=== PATIENT | female | born 1950 | race Caucasian/White ===

== ENCOUNTER 2025-10-25 12:34 | Outpatient (CLI) | payer OTHER, SELFPAY ==
--- NOTE | ~2025-10-25 | NM_ITS ---
EXAMINATION: BECCA singletary renal scan DATE: 10/25/2025 14:46 INDICATION: Atrophic kidney TECHNIQUE: 8 mCi Tc-99m MAG3 was administered IV. 40 mg furosemide was administered IV immediately afterward. The patient was scanned in the supine position. A posterior abdominal radionuclide angiogram was obtained. A subsequent time course of static images of the kidneys, ureters, and bladder was obtained. COMPARISON: None FINDINGS: The posterior abdominal radionuclide angiogram and sequential static images show normal position, and morphology of the kidneys. The left kidney significantly smaller than the right kidney. Peak renal parenchymal uptake was 9.5 min in left kidney and 9.5 min in right kidney (normal peak 3-5 minutes). The relative early renal uptake was 15% on the left and 85% on the right (<40% is abnormal). No abnormalities of the ureters or bladder are seen. There is a small focus of prominent persistent activity on the delayed images at the upper pole of the left kidney which appears greater than the activity in the renal pelvis which suggests either obstruction and caliectasis of an upper pole calyx possibly a calyceal diverticulum. T1/2 for clearance of activity from the left kidney and proximal collecting system was 19 minutes. T1/2 for clearance of activity from the right kidney and proximal collecting system was 19 minutes. Notes on interpretation: T1/2 <10 minutes is normal, 10-15 minutes is low grade obstruction of questionable clinical significance, 15-20 minutes is partial obstruction that is likely clinically significant, >20 minutes is high grade obstruction. Note that false positives may be seen with supine positioning, dehydration, severely dilated nonobstructed kidney, atonic collecting system, poor renal function, and chronic furosemide use. IMPRESSION: 1. 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 2. There is delayed clearance from both kidneys with T half for clearance of 19 minutes which would be consistent with likely clinically significant partial obstruction. Given the significant decreased relative function of the left kidney the degree of delay may be exaggerated by global poor renal function. 3. Small region of prominent persistent activity at the upper pole of the right kidney which suggests either caliectasis or potentially a calyceal diverticulum. Reviewed, dictated and finalized at location A. Y [employer]EVEL [employer]OUNT MANAGER IMPRESSION: 1. 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 2. There is delayed clearance from both kidneys with T half for clearance of 1 9 minutes which would be consistent with likely clinically significant partial obstruction. Given the significant decreased relative function of the left kidn ey the degree of delay may be exaggerated by global poor renal function. 3. Small region of prominent persistent activity at the upper pole of the right kidney which suggests either caliectasis or potentially a calyceal diverticulu m.
--- OUTSIDE RECORDS SUMMARY | 2025-10-25 12:42 | XMS_ITS | Encounter Summary ---
Author Organization [facility] Healthcare Address [address] [place] [address] Care Team Providers Care Hazardous Waste Remover Name Role Phone Deepak Clarke Primary Care Provider Georgette Cason DO Unavailable [phone] Aaron Mckay MD Unavailable [phone] Amandeep Fermin MD Unavailable [phone] Encounter Details Date Type Department Care Team (Late st Contact Info) Description 10/14/2025 Orders Only [facility] Health Information Management [address] [place] [address] Deepak Clarke PA [address] [place] [address] [address] [place] [address] Social History Tobacco Use Types Packs/Day Years Used Date Smoking Tobacco: Former Cigarettes 0.5 57.3 1 966 - 08/07/2025 Smokeless Tobacco: Never Alcohol Use Standard Drinks/Week Comments Not Currently 0 (1 standard drink = 0.6 oz pur e alcohol) PHQ-2 Answer Date Recorded PHQ-2 Total Score (If total score is 3 or more points, staff should administer the PHQ-9) 2 09/11/2025 PHQ-9 Answer Date Recorded PHQ-9 Total Score 6 09/11/2025 AUDIT-C Answer Date Recorded Q1: How often do you have a drink containing alcohol? Never 10/01/2025 Q2: How many drinks containi ng alcohol do you have on a typical day when you are drinking? Patient does not drink Q3: How often do you have si x or more drinks on one occasion? Never 10/01/2025 Personal Safety Answer Date Recorded Have you ever been in or are you currently in a harmful physical or emotional relationship or is someone making you feel afraid or unsafe? Denies 10/01/2025 Comments No Sex and Gender Information Value Date Recorded Sex Assigned at Not on file Legal Sex Female 11:52 PM HEALTH EVALUATOR Gender Identity Not on file Sexual Orientation Not on file documented as of this encounter Plan of Treatment Upcoming Encounters Date Type Department Care Team (Late st Contact Info) Description 12/03/2025 7:30 AM HEALTH EVALUATOR Hospital Encounter [facility] Operating Room [address] [place] [address] [place] [address] [address] [place] [address] Infrarenal abdominal aortic aneurysm (AAA) without rupture 12/03/2025 7:30 AM HEALTH EVALUATOR Anesthesia Event [facility] Operating [address] [place] [address] Jena Graham NP [address] [facility] [id number] [place] [address] 12/03/2025 7:30 AM HEALTH EVALUATOR - 12/03/2025 12:10 PM HEALTH EVALUATOR Surgery [facility] Operating Room [address] [place] [id number] [place] [address] [address] [place] [address] ENDOVASCULAR REPAIR - AORTIC documented as of this encounter Goals Goal Patient Goal Type Associated Problems Recent Progress Patient-Stated? Author Autogenera sujit Goal Care Plan Autogenerated Problem No Juan Ramon Duarte RN documented as of this encounter Procedures Procedure Name Priority Date/Time Associated Diagnosis Comments SCAN - LABS 10/14/2025 documented in this encounter Results * SCAN - LABS (10/14/2025) Deepak BUCK Final R esult documented in this encounter Visit Diagnoses Not on filedocumented in this encounter Additional Health Concerns Active Problems Noted Date Diagnosed Date Autogenerated Problem 10/15/2025 documented as of this encounter Care Teams Hazardous Waste Remover Relationship Specialty Start Date End Date Deepak Clarke PA [address] [facility] [address] [place] [address] PCP - General Internal Medicine 06/16/22 Georgette Cason DO [address] [facility] [address] [place] [address] Consulting Physician Endocrinology Diabetes & Metabolism 03/15/25 [place] [address] [place] [address] Consulting Physician Urology 09/12/25 Amandeep Fermin MD 2 [facility] [address] [place] [address] Consulting Physician Urology 10/24/25 [facility] 08/09/24 documented as of this encounter
--- OUTSIDE RECORDS SUMMARY | 2025-10-25 12:42 | XMS_ITS | Encounter Summary ---
Author Organization [facility] Address [address] [place] [address] Phone Care Team Providers Care Auto Body Builder Apprentice Name Role Phone Kendrick Rich MD Primary Care Provi johan Deepak Clarke Primary Care Provider Georgette Cason DO Unavailable [phone] Aaron Mckay MD Unavailable [phone] Amandeep Fermin MD Unavailable [phone] Encounter Details Date Type Department Care Team (Late st Contact Info) Description 11/17/2017 Orders Only [facility] ProviderKerry MD [address] [place] [address] Social History Tobacco Use Types Packs/Day Years Used Date Smoking Tobacco: Never Smokeless Tobacco: Never Alcohol Use Standard Drinks/Week Comments No 0 (1 standard drink = 0.6 oz pur e alcohol) Comments Unknown Sex and Gender Information Value Date Recorded Sex Assigned at Not on file Legal Sex Female 11:52 PM PLANT WRAPPER Gender Identity Not on file Sexual Orientation Not on file documented as of this encounter Plan of Treatment Upcoming Encounters Date Type Department Care Team (Late st Contact Info) Description 12/03/2025 7:30 AM PLANT WRAPPER Hospital Encounter [facility] Operating Room [address] [place] [address] [place] [address] [address] [facility] [address] [place] [address] Infrarenal abdominal aortic aneurysm (AAA) without rupture 12/03/2025 7:30 AM PLANT WRAPPER Anesthesia Event [facility] Operating Room [address] [place] [address] Jena Graham NP [address] [facility] [id number] [place] [address] 12/03/2025 7:30 AM PLANT WRAPPER - 12/03/2025 12:10 PM PLANT WRAPPER Surgery [facility] Operating Room [address] [place] [address] [place] [address] [address] [facility] [address], [place] [address] ENDOVASCULAR REPAIR - AORTIC documented as of this encounter Procedures Procedure Name Priority Date/Time Associated Diagnosis Comments DISCHARGE LABORATORY CUMULATIVE REPORT 11/17/2017 12:00 AM PLANT WRAPPER documented in this encounter Results * DISCHARGE LABORATORY CUMULATIVE REPORT (11/17/2017 12:00 AM PLANT WRAPPER) Narrative 11/17/2017 12:00 AM PLANT WRAPPER Ordered by an unspecified provider. us Historical Provider LAB BLOOD ORDERABLES Nhung l Result documented in this encounter Visit Diagnoses Not on filedocumented in this encounter Care Teams Auto Body Builder Apprentice Relationship Specialty Start Date End Date Kendrick Rich MD PCP - General 02/04/17 06/15/22 Deepak Clarke PA 2 [facility] [address] [place] [address] PCP - General Internal Medicine 06/16/22 Georgette Cason DO [address] [facility] [address] [place] [address] Consulting Physician Endocrinology Diabetes & Metabolism 03/15/25 [place] [address] [place] [address] Consulting Physician Urology 09/12/25 Amandeep Fermin MD 2 [facility] [address] [place] [address] Consulting Physician Urology 10/24/25 [facility] 08/09/24 documented as of this encounter
--- OUTSIDE RECORDS SUMMARY | 2025-10-25 12:42 | XMS_ITS | Encounter Summary ---
Author Organization [facility] Healthcare Address [address] [place] [address] Care Team Providers Care Workers Compensation Claims Examiner Name Role Phone Deepak Clarke Primary Care Provider Georgette Cason DO Unavailable [phone] Aaron Mckay MD Unavailable [phone] Amandeep Fermin MD Unavailable [phone] Encounter Details Date Type Department Care Team (Late st Contact Info) Description 09/11/2025 Results Follow-Up [facility] Primary Care at [address] [place] [address] Deeapk Clarke PA [address] [place] [address] [address] [place], [place] [id number] CTA Abdomen Pelvis Social History Tobacco Use Types Packs/Day Years [...] you have a drink containing alcohol? Never 09/11/2025 Q2: How many drinks containi ng alcohol do you have on a typical day when you are drinking? Patient does not drink Q3: How often do you have si x or more drinks on one occasion? Never 09/11/2025 Comments No Sex and Gender Information Value Date Recorded Sex Assigned at Not on file Legal Sex Female 11:52 PM CATTLE TRADER Gender Identity Not on file Sexual Orientation Not on file documented as of this encounter Plan of Treatment Upcoming Encounters Date Type Department Care Team (Late st Contact Info) Description 12/03/2025 7:30 AM CATTLE TRADER Hospital Encounter [facility] Operating Room [address] [place] [address] [place] [address] [address] [facility] [address], [place] [address] Infrarenal abdominal aortic aneurysm (AAA) without rupture 12/03/2025 7:30 AM CATTLE TRADER Anesthesia Event [facility] Operating [address] [place] [phone] Jena Graham, BELL RINGER [address] [facility] [phone] [place] [address] 12/03/2025 7:30 AM CATTLE TRADER - 12/03/2025 12:10 PM CATTLE TRADER Surgery [facility] Operating Room [address] [place] [address] [place] [address] [address] [place] [address] ENDOVASCULAR REPAIR - AORTIC documented as of this encounter Goals Goal Patient Goal Type Associated Problems Recent Progress Patient-Stated? Author Autogenera sujit Goal Care Plan Autogenerated Problem No Juan Ramon Duarte RN documented as of this encounter Visit Diagnoses Not on filedocumented in this encounter Additional Health Concerns Active Problems Noted Date Diagnosed Date Autogenerated Problem 10/15/2025 documented as of this encounter Care Teams Workers Compensation Claims Examiner Relationship Specialty Start Date End Date Deepak Clarke PA [address] [facility] [address] [place] [address] PCP - General Internal Medicine 06/16/22 Georgette Cason DO [address] [facility] [address] [place] [address] Consulting Physician Endocrinology Diabetes & Metabolism 03/15/25 [place] [address] [place] [address] Consulting Physician Urology 09/12/25 Amandeep Fermin MD 2 [facility] [address] [place] [address] Consulting Physician Urology 10/24/25 [facility] 08/09/24 documented as of this encounter
--- OUTSIDE RECORDS SUMMARY | 2025-10-25 12:42 | XMS_ITS | Clinical Summary ---
Author Organization [facility] Address [address] [place] [address] Care Team Providers Care Second Mate Name Role Phone Deepak Clarke Primary Care Provider Georgette Cason DO Unavailable [phone] Aaron Mckay MD Unavailable Amandeep Fermin MD Unavailable [phone] Allergies Active Allergy Reactions Criticality Noted Date Comments Sulfamethoxazole-Trimeth oprim Diarrhea,Dizziness,Headache,N ausea only,Fatigue Low 09/19/2025 Bupropion Hallucinations Medium 11/09/2024 Medications aspirin 81 mg enteric coated tabletIndicati ons:prevention of thrombosis Take 1 tablet (81 mg total) by mouth every evening Active hypromellose (SYSTANE GEL OPHT)Indicatio ns:dry eye/allergies Administer 1 drop into affected eye(s) daily as needed (eye irritation) Active cholecalcifero l (VITAMIN D-3) 5,000 unit tablet TAKE 1 TABLET BY MOUTH EVERY DAY 90 tablet 3 024 Active Additional Information Patient taking differently:5,000 Units oralDaily (early AM), Indications: Prevention of Vitamin D Deficiency, Informant: Self, Reported on 10/01/2025 cyanocobalamin (Vitamin B-12) 500 mcg tabletIndicati ons:Prevention of Vitamin B12 Deficiency Take 1 tablet (500 mcg total) by mouth every other day Active allopurinoL (ZYLOPRIM) 100 mg tablet TAKE 2 TABLETS BY MOUTH TWICE A DAY 360 tablet 3 Active Additional Information Patient taking differently:200 mg oral 2 times daily,Indications: Recurrent Calcium Renal Calculi, Informant: Self, Reported on 10/01/2025 venlafaxine XR (EFFEXOR-XR) 150 mg 24 hr capsule TAKE 1 CAPSULE BY MOUTH EVERY DAY 90 capsule 3 Active Additional Information Patient taking differently:150 mg oralEvery evening, + 75 mg tab = 225 mg total dose, Indications: Anxiety with Depression, Informant: Self, Reported on 10/01/2025 spironolactone (ALDACTONE) 25 mg tablet Take 1 tablet (25 mg total) by mouth daily 90 tablet 3 2025 Active Additional Information Patient taking differently:25 mg oralDaily (early AM), Indications: Ascites, hypertension, Informant: Self, Reported on 10/01/2025 fluticasone-um eclidin-vilant er (Trelegy Ellipta) 200-62.5-25 mcg inhaler Inhale 1 puff daily 1 each Active Additional Information Patient taking differently:1 puff inhalationDaily (early AM), Indications: Maintenance Therapy for Asthma, Informant: Self, Reported on 10/01/2025 mirabegron ER (MYRBETRIQ) 50 mg tablet extended release 24 hr Take 1 tablet (50 mg total) by mouth nightly 90 tablet 3 Active Additional Information Patient taking differently:50 mg oral Nightly,Indications: Bladder Hyperactivity, Informant: Self, Reported on 10/01/2025 atorvastatin (LIPITOR) 20 mg tablet TAKE 1 TABLET BY MOUTH EVERY DAY 90 tablet 3 025 Active Additional Information Patient taking differently:20 mg oralDaily (early AM), Indications: hyperlipidemia, Informant: Self, Reported on 10/01/2025 venlafaxine XR (EFFEXOR-XR) 75 mg 24 hr capsuleIndicat ions:Recurrent major depressive disorder, in partial remission Take 1 capsule (75 mg total) by mouth daily Take in combination with the 150 to equal 225mg. 90 capsule 4 025 2025 Active Additional Information Patient taking differently:75 mg oralEvery evening, Take in combination with the 150 to equal 225mg.,Indications: Anxiety with Depression, Informant: Self, Reported on 10/01/2025 celecoxib (CeleBREX) 200 mg capsule Take 1 capsule (200 mg total) by mouth daily 30 capsule 3 Active Additional Information Patient taking differently:200 mg oralEvery morning, Indications: Pain, Informant: Self, Reported on 10/01/2025 lisinopriL (PRINIVIL,ZEST RIL) 30 mg tablet TAKE 1 TABLET BY MOUTH EVERY DAY 90 tablet 4 Active Additional Information Patient taking differently:30 mg oralEvery evening, Indications: hypertension, Informant: Self, Reported on 10/01/2025 predniSONE (DELTASONE) 1 mg tablet TAKE 4 TABLETS BY MOUTH DAILY 120 tablet 3 Active Additional Information Patient taking differently:4 mg oralDaily (early AM), Indications: polymyalgia, Informant: Self, Reported on 10/01/2025 nystatin powder Apply topically 4 (four) times a day As needed for fungal rash 60 g 2025 Active Additional Information Patient taking differently: 1 Applicationtopical 4 times daily, As needed for fungal rash,Indications: cutaneous candidiasis, Informant: Self, Reported on 10/01/2025 estradioL (ESTRACE) 0.01 % (0.1 mg/gram) vaginal creamIndicatio ns:Atrophic Vaginitis associated with Menopause,Post menopausal Urethral Atrophy Insert 2 g into the vagina 2 (two) times a week Active albuterol HFA (PROVENTIL HFA,VENTOLIN HFA,PROAIR HFA) 90 mcg/actuation inhaler Inhale 2 puffs every 4 (four) hours as needed for wheezing or shortness of breath (cough) 1 each Active Additional Information Patient taking differently:2 puff inhalation Every 4 hours PRN, wheezing, shortness of breath, cough,Indications: Acute Asthma Attack, Chronic Obstructive Pulmonary Disease, Informant: Self, Reported on 10/01/2025 nitrofurantoin monohydrate (MACROBID) 100 mg capsuleIndicat ions:Prophylax is, Medical,Urinar y Tract/Genitour inary Infection Take 1 capsule (100 mg total) by mouth 2 (two) times a day Active magnesium glycinate 100 mg tabletIndicati ons:supplement Take 1 tablet by mouth every evening Activ e mometasone (NASONEX) 50 mcg/actuation nasal sprayIndicatio ns:Nasal sinus congestion Administer 2 sprays into each nostril 2 (two) times a day for 14 days 17 g 2024 Discontin ued(Thera py completed ) nitrofurantoin (MACRODANTIN) 100 mg capsule Take 1 capsule (100 mg total) by mouth nightly 30 capsule 3 025 2024 Discontin ued(Dupli juani order) cefdinir (OMNICEF) 300 mg capsuleIndicat ions:Urinary Tract/Genitour inary Infection Take 1 capsule (300 mg total) by mouth 2 (two) times a day for 7 days 14 capsule 025 2024 Hospital, Clinic, or Other Facility Administered Medication Ordered Dose Route Frequency Start Date End Date Status Tc-99m sestamibi unit dose injection 10.18 millicurieIndicatio ns:Diagnostic Radiography 10.18 millicurie IV Once in imaging 10/08/2025 10/08/2025 En ded regadenoson (LEXISCAN) 0.4 mg/5 mL injection 0.4 mgIndications:Myoca rdial Perfusion Imaging Adjunct 0.4 mg IV Once 10/08/2025 10/08/2025 Ended Tc-99m sestamibi unit dose injection 38.71 millicurieIndicatio ns:Diagnostic Radiography 38.71 millicurie IV Once in imaging 10/08/2025 10/08/2025 En ded Active Problems Problem Noted Date Diagnosed Date Urinary tract infection 10/08/2025 Assessment & Plan (10/08/2025 6:34 AM REGULATORY AFFAIRS PORTFOLIO LEADER): - Recent UTI treated with bactrim then macrobid - pre op UA COPD without exacerbation 10/08/2025 Assessment & Plan (10/08/2025 6:35 AM REGULATORY AFFAIRS PORTFOLIO LEADER): - previous smoker, quit 08/07 per chart review - continue home inhalers - IS Age-related osteoporosis wit hoervin current pathological fracture 08/30/2025 Abdominal aortic aneurysm (AAA) without rupture 08/30/2025 Assessment & Plan (10/08/2025 6:30 AM REGULATORY AFFAIRS PORTFOLIO LEADER): 10/09: s/p EVAR - OU, Q2 hr NV exam - Bedrest - Advance diet as tolerated - Monitor incisions/puncture for bleeding/hematoma - Continue ASA - normotension BP goal - OOB POD #1 Recurrent major depressive disorder, in full rem ission 03/15/2025 Overview (03/15/2025): Controlled on Effexor Overactive bladder 03/15/2025 Overview (03/15/2025): Not adequately treated with Myrbetriq 25 and will try 50 mg. Assessment & Plan (06/05/2025 11:38 AM CDT): Chronic problem, not at goal Continue Myrbetriq Consider urology referral in the future Irritable bowel syndrome with diarrhea Emphysema of lung 08/05/2022 Collagenous colitis 09/11/2021 Assessment & Plan (02/03/2022 2:50 PM CDT): Responded well to treatment with budesonide. Tapered off the medication and has remained asymptomatic. Denies diarrhea or abdominal pain. She was advised to discontinue Lomotil, dicyclomine and budesonide. Advised to call me if symptoms reoccur. Assessment & Plan (10/26/2021 9:03 PM REG[employer]ATORY AFFAIRS PORTFOLIO LEADER): Doing much better. She was started on budesonide 9 mg daily. She started to feel much better within the 1st wwek. She was instructed to taper of budesonide. Specifically she was asked to take 6 mg daily for 2 weeks and then 3 mg daily for 2 weeks. Advised to call me if diarrhea worsens again. At that point I will treat her with cholestyramine and Imodium. Follow-up office visit in 3 months. Assessment & Plan (09/11/2021 11:24 AM CDT): Newly diagnosed. Associated with 2-3 loose bowel movements daily. When responded well to Lomotil. She has taking Aleve for arthritis for many years. She will be started on budesonide 9 mg daily. Advised to take Lomotil only p.r.n.. Printed patient educational material was given to the patient. She was advised to resume taking her antidepressant. Chronic diarrhea 08/24/2021 Overview (08/24/2021): Added automatically from request for surgery [id number] Assessment & Plan (02/03/2022 2:51 PM CDT): Evaluation revealed features of collagenous colitis. Successfully treated with budesonide. Will observe at this time. Assessment & Plan (09/11/2021 11:24 AM CDT): Likely due to microscopic colitis. Recent colonoscopy report was reviewed. Patient is now started on therapy with budesonide. Will continue to monitor her response to therapy. Return visit in 6 weeks. Chronic pain of both knees 03/23/2021 Assessment & Plan (03/23/2021 11:43 AM CDT): Discussed 1/5 not happy with knee replacement that at her wt many surg will ont do sursg and feel to high risk for a bad out come. Recognize thaty wt off a struggle . So for now keepkng knee Primary osteoarthritis of both knees 03/04/2021 Assessment & Plan (03/04/2021 4:38 PM CDT): Using cane and hobbling but with bmi 43 not a ggod candidate for knee replacement. But referral in upcoming months acacia if cont with wt off Benign paroxysmal positional vertigo due to bilateral vestibular disorder 02/20/2020 Assessment & Plan (02/20/2020 11:21 AM CDT): Episodic and suggest ading zyrtec and if cont then dig up the inner ear vertigo exercises to try salt limits Seasonal allergies 02/20/2020 Assessment & Plan (02/20/2020 11:22 AM CDT): Seasonal all add zyrtec and see if hel[pful for now using 2 forms of benadryl and not aware of After asking her to spell out meds As long as recog then can use Trigger ring finger of left hand 02/20/2020 Assessment & Plan (02/20/2020 11:23 AM CDT): Ring finger sticks and palm hurts on occasion when Moves. Discussed and Option of inj If cont to be issue. Plantar fasciitis 12/19/2019 Assessment & Plan (12/19/2019 4:31 PM [employer]ATORY AFFAIRS PORTFOLIO LEADER): Discussed and Type of self therapy to help critical to stretch repeatedly 1-2 mins but 6+ times a day. Slow transit constipation 12/19/2019 Assessment & Plan (03/04/2021 4:36 PM CDT): Denies ant pre diarrhea severe constipation os impaction not art of differential for now Assessment & Plan (12/19/2019 4:34 PM REG[employer]ATORY AFFAIRS PORTFOLIO LEADER): miralax go to 4 daose until moves then adjsut as needed to controll Atherosclerosis of abdominal aorta 07/26/2018 Assessment & Plan (06/16/2022 1:56 PM CDT): Asa and tight risk Assessment & Plan (05/19/2021 10:12 AM CDT): Tight risk And cont mes as on Assessment & Plan (02/20/2020 11:10 AM CDT): Asa and tight risk cotnrnmoll Assessment & Plan (01/24/2019 9:20 AM CDT): Risk control Assessment & Plan (07/26/2018 12:06 PM CDT): Noted on scan and work to controll risk with ldl. Sugar ad bp. Daily asa 81 Tobacco abuse 07/26/2018 Assessment & Plan (09/11/2025 7:37 AM REGULATORY AFFAIRS PORTFOLIO LEADER): The patient was advised to quit smoking; the risks of continued tobacco use discussed. Assessment & Plan (07/18/2025 7:09 AM CDT): The patient was advised to quit smoking; the risks of continued tobacco use discussed. Assessment & Plan (03/15/2025 7:43 AM CDT): The patient was advised to quit smoking; the risks of continued tobacco use discussed. Assessment & Plan (02/07/2025 12:29 PM CDT): Continue cessation. Up-to-date on low-dose lung CT Assessment & Plan (01/10/2024 10:17 AM REGULATORY AFFAIRS PORTFOLIO LEADER): Continue cessation. Up-to-date on low-dose lung CT Assessment & Plan (03/18/2023 7:47 AM CDT): The patient was advised to quit smoking; the risks of continued tobacco use discussed. Assessment & Plan (11/04/2022 12:50 PM REGULATORY AFFAIRS PORTFOLIO LEADER): The patient was advised to quit smoking; the risks of continued tobacco use discussed. Assessment & Plan (08/04/2022 12:46 PM CDT): She was advised to quit smoking; the risks of continued tobacco use discussed. Assessment & Plan (05/19/2021 10:04 AM CDT): Wants to quit and try chantix as helped before but told has to make up mind to quit an dit will do It givenhx Assessment & Plan (05/08/2020 7:58 AM CDT): The patient was advised to quit smoking; the risks of continued tobacco use discussed. Assessment & Plan (05/16/2019 8:31 AM CDT): She was advised to quit smoking; the risks of continued tobacco use discussed. Counseled for approximately 6 minutes Assessment & Plan (09/14/2018 9:21 AM REGULATORY AFFAIRS PORTFOLIO LEADER): She was advised to quit smoking; the risks of continued tobacco use discussed. Assessment & Plan (07/26/2018 12:25 PM CDT): Still smokes and knows needs to quit. Other general medical examin ation for administrative purposes 07/26/2018 Assessment & Plan (05/19/2021 10:20 AM CDT): eee today , full code has poa and living will. Assessment & Plan (07/27/2018 5:53 PM CDT): Declines colon but aggrees to cologuard Primary localized osteoarthritis of right knee 0 11/24/2017 Assessment & Plan (06/16/2022 1:57 PM CDT): referal to maria isabel osei for inj. PE (physical exam), annual 06/23/2017 Assessment & Plan (06/16/2022 2:01 PM CDT): Well exam mod fall risk deprienos screen stable and mild abn and declines meds cog screen nl see's [place] in near future gi dr crockett consider shingles shot seroies covid updae with new shot.timothy consider updateing Assessment & Plan (05/19/2021 10:15 AM CDT): Mod fall risk , depressino screen neg and on meds. Cog screen nl colon and timothy up to date had flu . p shots and cocvid . Needs new shingles shot series. Assessment & Plan (07/26/2018 12:25 PM CDT): Needs ma and suggest. Needs colon eval and declines colonoscopy. Has had p shots and fllu this yyyr. Shingles was 4 yrs ago and discussed new one. Check withinasurance about coverageo on the tdap and should get. Repeat labs and bp check in 2months for lipids.depression screen nl. Fall risk low.admits juan pablo worry and d cif one. Discussed probiotics. Fiber to reduce risk. Interested in totoal body scan and I am not a valadez of any insurance covered benefit to get. Still smokes and needs to quit Morbid obesity with BMI of 45.0-49.9, adult 06/07 Assessment & Plan (11/09/2024 7:18 AM REG[employer]ATORY AFFAIRS PORTFOLIO LEADER): The patient was counseled on the importance of maintaining a healthy weight and the risks of obesity. Weight loss recommended. Assessment & Plan (08/09/2024 8:14 AM CDT): The patient was counseled on the importance of maintaining a healthy weight and the risks of obesity. Weight loss recommended. Assessment & Plan (06/20/2024 7:37 AM CDT): The patient was counseled on the importance of maintaining a healthy weight and the risks of obesity. Weight loss recommended. Assessment & Plan (01/10/2024 6:51 AM REGULATORY AFFAIRS PORTFOLIO LEADER): She was counseled on the importance of maintaining a healthy weight and the risks of obesity. Weight loss recommended. Assessment & Plan (03/18/2023 7:47 AM CDT): The patient was counseled on the importance of maintaining a healthy weight and the risks of obesity. Weight loss recommended. Assessment & Plan (11/04/2022 12:50 PM REGULATORY AFFAIRS PORTFOLIO LEADER): The patient was counseled on the importance of maintaining a healthy weight and the risks of obesity. Weight loss recommended. Assessment & Plan (08/04/2022 12:46 PM CDT): She was counseled on the importance of maintaining a healthy weight and the risks of obesity. Weight loss recommended. Assessment & Plan (06/16/2022 2:01 PM CDT): Needs to loseMorbid obesity is a bmi of 40 or more. Targeted weight loss with portion controll(calorie restriction) ,increased basal activity Levels along with adding an exercise program to lead to gradual weight loss,.Any program of change from weight watchers. To nutra system along with others work. Assessment & Plan (01/03/2018 8:43 AM REGULATORY AFFAIRS PORTFOLIO LEADER): She was counseled on the importance of maintaining a healthy weight and the risks of obesity. Weight loss recommended. Assessment & Plan (11/29/2017 9:15 AM REGULATORY AFFAIRS PORTFOLIO LEADER): Morbid obesity is a bmi of 40 or more. Targeted weight loss with portion controll(calorie restriction) ,increased basal activity Levels along with adding an exercise program to lead to gradual weight loss,.Any program of change from weight watchers. To nutra system along with others work. Assessment & Plan (06/23/2017 11:26 AM CDT): Morbid obesity is a bmi of 40 or more. Targeted weight loss with portion controll(calorie restriction) ,increased basal activity Levels along with adding an exercise program to lead to gradual weight loss,.Any program of change from weight watchers. To nutra system along with others work. At moderate risk for fall 06/23/2017 Assessment & Plan (06/16/2022 1:57 PM CDT): Mod risk rfall Assessment & Plan (05/19/2021 10:16 AM CDT): Mod fall risk Assessment & Plan (07/26/2018 12:10 PM CDT): Low risk for fall and cont to walk Assessment & Plan (06/23/2017 11:21 AM CDT): At Risk low but work to work at balance IGT (impaired glucose tolerance) 06/23/2017 Assessment & Plan (06/16/2022 1:56 PM CDT): a1c at 5.6 Assessment & Plan (02/10/2022 4:14 PM CDT): Check a1c on return Assessment & Plan (05/19/2021 10:11 AM CDT): a1c at 5.5 and nl Assessment & Plan (02/20/2020 11:15 AM CDT): Fasting 91 adbn check a1c onr eturn Assessment & Plan (09/20/2019 8:17 AM REGULAT[employer] AFFAIRS PORTFOL[employer] LEADER): a1c at 5.6 and check in 3-4 monoths Assessment & Plan (01/24/2019 9:11 AM CDT): a1c down to 5.6 and dropping ovber last yr. Will drop more with added wt off Assessment & Plan (07/26/2018 12:09 PM CDT): a1c at 5.7 and 5.6 nl. Assessment & Plan (03/29/2018 10:51 AM CDT): a1c droopped and with added Limits on food will drop Assessment & Plan (11/29/2017 9:16 AM REGULATORY AFFAIRS PORTFOLIO LEADER): a1c at 6.1 and 6.5 diabetes. Assessment & Plan (06/23/2017 11:22 AM CDT): a1c at 6.0 and 5.6 andlessnl.Igt is the reduction of tolerance to simple carbs and usually looked at as a pre diabetic state. For most losing weight. Controlling the intake of simple carbs is helpful in improving this. We follow the a1c of most patients to monitor this Benign hypertension 06/13/2015 Overview (02/09/2017): BENIGN HYPERTENSION Assessment & Plan (10/08/2025 6:32 AM REGULATORY AFFAIRS PORTFOLIO LEADER): - OU, VS q2 hrs and PRN - Normotension BP goal - continue home lisinopril and spirnolactone when able Assessment & Plan (09/11/2025 7:37 AM REGULATORY AFFAIRS PORTFOLIO LEADER): Recommend DASH diet, heart healthy lifestyle, exercise. Discussed the risks of hypertension. Assessment & Plan (07/18/2025 7:06 AM CDT): Recommend DASH diet, heart healthy lifestyle, exercise. Discussed the risks of hypertension. Assessment & Plan (03/15/2025 7:43 AM CDT): Recommend DASH diet, heart healthy lifestyle, exercise. Discussed the risks of hypertension. Assessment & Plan (02/07/2025 12:29 PM CDT): Recommend DASH diet, heart healthy lifestyle, exercise. Discussed the risks of hypertension. Assessment & Plan (11/09/2024 7:17 AM REGULATORY AFFAIRS PORTFOLIO LEADER): Recommend DASH diet, heart healthy lifestyle, exercise. Discussed the risks of hypertension. Assessment & Plan (08/09/2024 8:14 AM CDT): Recommend DASH diet, heart healthy lifestyle, exercise. Discussed the risks of hypertension. Assessment & Plan (06/20/2024 7:37 AM CDT): Recommend DASH diet, heart healthy lifestyle, exercise. Discussed the risks of hypertension. Assessment & Plan (01/10/2024 6:51 AM REGULATORY AFFAIRS PORTFOLIO LEADER): Recommend DASH diet, heart-healthy lifestyle, exercise. Discussed the risks of hypertension. Assessment & Plan (09/09/2023 10:03 AM CDT): Recommend DASH diet, heart healthy lifestyle, exercise. Discussed the risks of hypertension. Assessment & Plan (03/18/2023 7:47 AM CDT): Recommend DASH diet, heart healthy lifestyle, exercise. Discussed the risks of hypertension. Assessment & Plan (11/04/2022 12:51 PM REGULATORY AFFAIRS PORTFOLIO LEADER): Recommend DASH diet, heart healthy lifestyle, exercise. Discussed the risks of hypertension. Assessment & Plan (08/04/2022 12:45 PM CDT): Recommend DASH diet, heart-healthy lifestyle, exercise. Discussed the risks of hypertension. Assessment & Plan (06/16/2022 1:55 PM CDT): bp good and if wt Changes then needs to tract as jenny affect itHypertension, Medical treament revolves around weight control, salt management, and meds when necessary. long as weight loss is necessary and you are able to drop weight we can cont to monitor the blood pressure and not add meds. Once the weight is not changing then it becomes nesessary to add meds to be able to reach the goal bp. Assessment & Plan (02/10/2022 4:13 PM CDT): The bp good and k eep meds same Hypertension, Medical treament revolves around weight control, salt management, and meds when necessary. long as weight loss is necessary and you are able to drop weight we can cont to monitor the blood pressure and not add meds. Once the weight is not changing then it becomes nesessary to add meds to be able to reach the goal bp. Assessment & Plan (12/23/2021 10:08 AM REGULATORY AFFAIRS PORTFOLIO LEADER): The bp good but not liking the k pill so change to 20 lisinpril stopk 20 and start aldctone 25 and check labs and bp in 4-6 wksHypertension, Medical treament revolves around weight control, salt management, and meds when necessary. long as weight loss is necessary and you are able to drop weight we can cont to monitor the blood pressure and not add meds. Once the weight is not changing then it becomes nesessary to add meds to be able to reach the goal bp. Assessment & Plan (10/19/2021 8:50 AM REGULATORY AFFAIRS PORTFOLIO LEADER): Recommend DASH diet, heart-healthy lifestyle, exercise. Discussed the risks of hypertension. Assessment & Plan (08/17/2021 6:12 PM CDT): Recommend DASH diet, heart-healthy lifestyle, exercise. Discussed the risks of hypertension. Assessment & Plan (07/27/2021 12:03 PM CDT): bp dropped and will stop the catapress and recheck bp and see if not need more d Roped Hypertension, Medical treament revolves around weight control, salt management, and meds when necessary. long as weight loss is necessary and you are able to drop weight we can cont to monitor the blood pressure and not add meds. Once the weight is not changing then it becomes nesessary to add meds to be able to reach the goal bp. In 2-3 wks Or when drops 7-10 lbs cut the lisinopril in 11/08 and tell us on return if doing that Assessment & Plan (05/19/2021 10:09 AM CDT): The bp good and drops touch on standing but no complalnts but watch and drop meds if see's issuesHypertension, Medical treament revolves around weight control, salt management, and meds when necessary. long as weight loss is necessary and you are able to drop weight we can cont to monitor the blood pressure and not add meds. Once the weight is not changing then it becomes nesessary to add meds to be able to reach the goal bp. Assessment & Plan (03/23/2021 11:37 AM CDT): The bp good and no chagd in meds and diet would drop wt and Med needsHypertension, Medical treament revolves around weight control, salt management, and meds when necessary. long as weight loss is necessary and you are able to drop weight we can cont to monitor the blood pressure and not add meds. Once the weight is not changing then it becomes nesessary to add meds to be able to reach the goal bp. Assessment & Plan (03/04/2021 4:30 PM CDT): Wt looss and idaarhea not afectinig bp yet but leave meds as on and check bp wekly.Hypertension, Medical treament revolves around weight control, salt management, and meds when necessary. long as weight loss is necessary and you are able to drop weight we can cont to monitor the blood pressure and not add meds. Once the weight is not changing then it becomes nesessary to add meds to be able to reach the goal bp. Assessment & Plan (11/18/2020 3:22 PM [facility] AFFAIRS PORTFOLIO LEADER): bp Controlled and should stay good as long as not sign. Wt changseHypertension, Medical treament revolves around weight control, salt management, and meds when necessary. long as weight loss is necessary and you are able to drop weight we can cont to monitor the blood pressure and not add meds. Once the weight is not changing then it becomes nesessary to add meds to be able to reach the goal bp. Assessment & Plan (05/08/2020 7:58 AM CDT): Hypertension questions Assessment & Plan (02/20/2020 11:09 AM CDT): No bp to re[port stay on meds and cont meds as on and Report if an issue as if wt cont to drop as in past jenny see bp lowerHypertension, Medical treament revolves around weight control, salt management, and meds when necessary. long as weight loss is necessary and you are able to drop weight we can cont to monitor the blood pressure and not add meds. Once the weight is not changing then it becomes nesessary to add meds to be able to reach the goal bp. Assessment & Plan (12/19/2019 4:29 PM [facility]ATORY AFFAIRS PORTFOLIO LEADER): Post op bp good on meeds and no changes watch as jenny drop with wtHypertension, Medical treament revolves around weight control, salt management, and meds when necessary. long as weight loss is necessary and you are able to drop weight we can cont to monitor the blood pressure and not add meds. Once the weight is not changing then it becomes nesessary to add meds to be able to reach the goal bp. Assessment & Plan (09/20/2019 8:17 AM REGULATORY AFFAIRS PORTFOLIO LEADER): The bp good enough to drop/stop the hydralazine and short term check and see if can stop next pill might be hctz or drop to 12.5 and see e ffects on calciumHypertension, Medical treament revolves around weight control, salt management, and meds when necessary. long as weight loss is necessary and you are able to drop weight we can cont to monitor the blood pressure and not add meds. Once the weight is not changing then it becomes nesessary to add meds to be able to reach the goal bp. Assessment & Plan (01/24/2019 9:17 AM CDT): bp here still a little high so wt off will drop it. Hypertension, Medical treament revolves around weight control, salt management, and meds when necessary. long as weight loss is necessary and you are able to drop weight we can cont to monitor the blood pressure and not add meds. Once the weight is not changing then it becomes nesessary to add meds to be able to reach the goal bp. Assessment & Plan (12/15/2018 8:07 AM [facility]ATORY AFFAIRS PORTFOLIO LEADER): Recommend DASH diet, heart healthy lifestyle, exercise. Discussed the risks of hypertension. Assessment & Plan (11/15/2018 1:30 PM [facility]ATORY AFFAIRS PORTFOLIO LEADER): bp coming down with wt off. Cont to work off wt and check bp in a monotohHypertension, Medical treament revolves around weight control, salt management, and meds when necessary. long as weight loss is necessary and you are able to drop weight we can cont to monitor the blood pressure and not add meds. Once the weight is not changing then it becomes nesessary to add meds to be able to reach the goal bp. Assessment & Plan (07/26/2018 12:05 PM CDT): The bp stil up and issue with catapress. feels constipation.stop it and start hyddralazine 25 bid and recheck and adjust. Up to 100 bid if needed. Cont medsHypertension, Medical treament revolves around weight control, salt management, and meds when necessary. long as weight loss is necessary and you are able to drop weight we can cont to monitor the blood pressure and not add meds. Once the weight is not changing then it becomes nesessary to add meds to be able to reach the goal bp. Assessment & Plan (03/29/2018 10:54 AM CDT): Mildly cont up and will add catapres too night rx and see if enough to b ring bp down.Hypertension, Medical treament revolves around weight control, salt management, and meds when necessary. long as weight loss is necessary and you are able to drop weight we can cont to monitor the blood pressure and not add meds. Once the weight is not changing then it becomes nesessary to add meds to be able to reach the goal bp.. Assessment & Plan (01/02/2018 7:28 PM [facility]ATORY AFFAIRS PORTFOLIO LEADER): Recommend DASH diet, heart-healthy lifestyle, exercise. Discussed the risks of hypertension. Assessment & Plan (11/29/2017 9:14 AM REGULATORY AFFAIRS PORTFOLIO LEADER): bp high and has been last couple visit. Will go to from 08/18.5 from 2 pills to one p ill and recheck in 4.6 wks along with labs.Hypertension, Medical treament revolves around weight control, salt management, and meds when necessary. long as weight loss is necessary and you are able to drop weight we can cont to monitor the blood pressure and not add meds. Once the weight is not changing then it becomes nesessary to add meds to be able to reach the goal bp.. Assessment & Plan (06/23/2017 11:27 AM CDT): bp good and no changesHypertension, Medical treament revolves around weight control, salt management, and meds when necessary. long as weight loss is necessary and you are able to drop weight we can cont to monitor the blood pressure and not add meds. Once the weight is not changing then it becomes nesessary to add meds to be able to reach the goal bp. Anxiety 01/01/2015 Overview (02/11/2017): Anxiety Assessment & Plan (10/08/2025 6:31 AM REGULATORY AFFAIRS PORTFOLIO LEADER): - continue home effexor Hyperparathyroidism 03/23/2014 Overview (02/09/2017): Hyperparathyroidism Assessment & Plan (06/16/2022 1:57 PM CDT): Calcium 10 .4 and trace high and monitor and pth Assessment & Plan (02/10/2022 4:14 PM CDT): pth stable ad watch ca levels Assessment & Plan (12/23/2021 10:12 AM REGULATORY AFFAIRS PORTFOLIO LEADER): pth up to 130 and check bone densiety and if nl then watch pth as long as cl nl Assessment & Plan (05/19/2021 10:09 AM CDT): [th inching up with 86 now and 82 last and 79 before that cont watch and calc nl so can watch Assessment & Plan (11/18/2020 3:23 PM REGULATORY AFFAIRS PORTFOLIO LEADER): Calcium at 10.4 and 10.3 nnl. And stay off calcium contraiing items check pth on return Assessment & Plan (10/14/2020 11:45 AM REGULATORY AFFAIRS PORTFOLIO LEADER): Calc droped to 10 and droopped from 11.1 for now stay off calcium and readd vit d 2000 and recheck On calc and vit d on return to confirm whrere at. Assessment & Plan (02/20/2020 11:13 AM CDT): Stable and 3 points higher limit oral calcium s if serum calc to high will lead to surg eval Assessment & Plan (09/20/2019 8:18 AM REGULATORY AFFAIRS PORTFOLIO LEADER): surg if calc climbs despinte ;med changes Assessment & Plan (01/24/2019 9:15 AM CDT): Check pth on return Assessment & Plan (07/26/2018 12:07 PM CDT): Controlled calc and moniotor Assessment & Plan (03/29/2018 10:53 AM CDT): Calcium nll and monitor and limit intact of calcium. Check pth levelon return Assessment & Plan (06/23/2017 11:24 AM CDT): With Blood levels of calcium good no intervention and controlled Hyperlipidemia 03/23/2014 Overview (02/09/2017): HYPERLIPIDEMIA NEC/NOS Assessment & Plan (09/11/2025 7:37 AM REGULATORY AFFAIRS PORTFOLIO LEADER): Counseled on heart healthy diet exercise Assessment & Plan (07/18/2025 7:06 AM CDT): Counseled on heart healthy diet exercise Assessment & Plan (03/15/2025 7:43 AM CDT): Counseled on heart healthy diet exercise Assessment & Plan (11/09/2024 7:18 AM REGULATORY AFFAIRS PORTFOLIO LEADER): Counseled on heart healthy diet exercise Assessment & Plan (06/20/2024 7:37 AM CDT): Counseled on heart healthy diet exercise Assessment & Plan (06/16/2022 1:55 PM CDT): ldl at 56 and great and keep hereYour cholesterol in the form of ldl (bad) cholesterol,hdl(good) cholesterol and triglycerides are monitored. The triglycerides respond to reduction/controll of your simple carbs/sugars In such items as sugared soda/sweet tea along with fruit juices(containing natural sugar) even if no added sugar is added. LDL cholesterol is reduced with reducing daily intake of fats and acacia. saturated fats. The monosaturated fats like olive oil are not harmful except in the calories they contained. Whole milk cheese needs to be remembered along with whole milk products And limited. Assessment & Plan (02/10/2022 4:12 PM CDT): ldl at tight contorll and stay on meds and check onr eturnYour cholesterol in the form of ldl (bad) cholesterol,hdl(good) cholesterol and triglycerides are monitored. The triglycerides respond to reduction/controll of your simple carbs/sugars In such items as sugared soda/sweet tea along with fruit juices(containing natural sugar) even if no added sugar is added. LDL cholesterol is reduced with reducing daily intake of fats and acacia. saturated fats. The monosaturated fats like olive oil are not harmful except in the calories they contained. Whole milk cheese needs to be remembered along with whole milk products And limited. Assessment & Plan (12/23/2021 10:13 AM REGULATORY AFFAIRS PORTFOLIO LEADER): ldl 72 and terminologist lower but not change fornowYour cholesterol in the form of ldl (bad) cholesterol,hdl(good) cholesterol and triglycerides are monitored. The triglycerides respond to reduction/controll of your simple carbs/sugars In such items as sugared soda/sweet tea along with fruit juices(containing natural sugar) even if no added sugar is added. LDL cholesterol is reduced with reducing daily intake of fats and acacia. saturated fats. The monosaturated fats like olive oil are not harmful except in the calories they contained. Whole milk cheese needs to be remembered along with whole milk products And limited. Assessment & Plan (05/19/2021 10:10 AM CDT): ldl dropped to 69 from 78 and stay here and cont meds as on Your cholesterol in the form of ldl (bad) cholesterol,hdl(good) cholesterol and triglycerides are monitored. The triglycerides respond to reduction/controll of your simple carbs/sugars In such items as sugared soda/sweet tea along with fruit juices(containing natural sugar) even if no added sugar is added. LDL cholesterol is reduced with reducing daily intake of fats and acacia. saturated fats. The monosaturated fats like olive oil are not harmful except in the calories they contained. Whole milk cheese needs to be remembered along with whole milk products And limited. Assessment & Plan (12/29/2020 1:38 PM REGULATORY AFFAIRS PORTFOLIO LEADER): Concerned abouta pills And Grapefruit and discussed options, byt eat grapefruit in am and pill in pm Assessment & Plan (11/18/2020 3:21 PM REGULATORY AFFAIRS PORTFOLIO LEADER): Check on return cont meds and diet as onYour cholesterol in the form of ldl (bad) cholesterol,hdl(good) cholesterol and triglycerides are monitored. The triglycerides respond to reduction/controll of your simple carbs/sugars In such items as sugared soda/sweet tea along with fruit juices(containing natural sugar) even if no added sugar is added. LDL cholesterol is reduced with reducing daily intake of fats and acacia. saturated fats. The monosaturated fats like olive oil are not harmful except in the calories they contained. Whole milk cheese needs to be remembered along with whole milk products And limited. Assessment & Plan (02/20/2020 11:14 AM CDT): 81 late fall and recheck onreturn and target 60 to try for reversal for now no changes without new lb checks add on novYour cholesterol in the form of ldl (bad) cholesterol,hdl(good) cholesterol and triglycerides are monitored. The triglycerides respond to reduction/controll of your simple carbs/sugars In such items as sugared soda/sweet tea along with fruit juices(containing natural sugar) even if no added sugar is added. LDL cholesterol is reduced with reducing daily intake of fats and acacia. saturated fats. The monosaturated fats like olive oil are not harmful except in the calories they contained. Whole milk cheese needs to be remembered along with whole milk products And limited. Assessment & Plan (09/20/2019 8:18 AM REGULATORY AFFAIRS PORTFOLIO LEADER): ldl droping to 80 some 20 over last 1 yr and watch and push meds if goes up and once wt stops pupsh to 60 with medsYour cholesterol in the form of ldl (bad) cholesterol,hdl(good) cholesterol and triglycerides are monitored. The triglycerides respond to reduction/controll of your simple carbs/sugars In such items as sugared soda/sweet tea along with fruit juices(containing natural sugar) even if no added sugar is added. LDL cholesterol is reduced with reducing daily intake of fats and acacia. saturated fats. The monosaturated fats like olive oil are not harmful except in the calories they contained. Whole milk cheese needs to be remembered along with whole milk products And limited. Assessment & Plan (05/15/2019 8:23 PM CDT): LDL contorlled at 76, cont statin. Assessment & Plan (01/24/2019 9:12 AM CDT): Your cholesterol in the form of ldl (bad) cholesterol,hdl(good) cholesterol and triglycerides are monitored. The triglycerides respond to reduction/controll of your simple carbs/sugars In such items as sugared soda/sweet tea along with fruit juices(containing natural sugar) even if no added sugar is added. LDL cholesterol is reduced with reducing daily intake of fats and acacia. saturated fats. The monosaturated fats like olive oil are not harmful except in the calories they contained. Whole milk cheese needs to be remembered along with whole milk products And limited.ldl at 92 and dropping and cont to keep here an d pfrefer tighter. Down to 60 or leess. Assessment & Plan (07/26/2018 12:08 PM CDT): ldl at 97 and less then 100 but want lower. On pravachol and would go to atorvastin 20 and check results. Your cholesterol in the form of ldl (bad) cholesterol,hdl(good) cholesterol and triglycerides are monitored. The triglycerides respond to reduction/controll of your simple carbs/sugars In such items as sugared soda/sweet tea along with fruit juices(containing natural sugar) even if no added sugar is added. LDL cholesterol is reduced with reducing daily intake of fats and acacia. saturated fats. The monosaturated fats like olive oil are not harmful except in the calories they contained. Whole milk cheese needs to be remembered along with whole milk products And limited. Assessment & Plan (03/29/2018 10:53 AM CDT): ldl dropped to les then 100. Cont as you are.Your cholesterol in the form of ldl (bad) cholesterol,hdl(good) cholesterol and triglycerides are monitored. The triglycerides respond to reduction/controll of your simple carbs/sugars In such items as sugared soda/sweet tea along with fruit juices(containing natural sugar) even if no added sugar is added. LDL cholesterol is reduced with reducing daily intake of fats and acacia. saturated fats. The monosaturated fats like olive oil are not harmful except in the calories they contained. Whole milk cheese needs to be remembered along with whole milk products And limited. Assessment & Plan (11/29/2017 9:15 AM REGULATORY AFFAIRS PORTFOLIO LEADER): ldl at 89 and less then 100 good. No hangesYour cholesterol in the form of ldl (bad) cholesterol,hdl(good) cholesterol and triglycerides are monitored. The triglycerides respond to reduction/controll of your simple carbs/sugars In such items as sugared soda/sweet tea along with fruit juices(containing natural sugar) even if no added sugar is added. LDL cholesterol is reduced with reducing daily intake of fats and acacia. saturated fats. The monosaturated fats like olive oil are not harmful except in the calories they contained. Whole milk cheese needs to be remembered along with whole milk products And limited. Assessment & Plan (06/23/2017 11:24 AM CDT): ldl at 117 and nl less then 130 . With diaetes or arterial dissease will target less then 100Your cholesterol in the form of ldl (bad) cholesterol,hdl(good) cholesterol and triglycerides are monitored. The triglycerides respond to reduction/controll of your simple carbs/sugars In such items as sugared soda/sweet tea along with fruit juices(containing natural sugar) even if no added sugar is added. LDL cholesterol is reduced with reducing daily intake of fats and acacia. saturated fats. The monosaturated fats like olive oil are not harmful except in the calories they contained. Whole milk cheese needs to be remembered along with whole milk products And limited. Vitamin D deficiency 03/23/2014 Overview (02/09/2017): VITAMIN D DEFICIENCY NOS Assessment & Plan (06/16/2022 1:58 PM CDT): monnitor and limt replacement as jenny drive up calc Assessment & Plan (12/23/2021 10:14 AM REGULATORY AFFAIRS PORTFOLIO LEADER): D at 37 and good no changes Assessment & Plan (11/18/2020 3:22 PM REGULATORY AFFAIRS PORTFOLIO LEADER): Dd at 41 While the lucia 10.4 good check pth on reutnr Assessment & Plan (10/14/2020 11:46 AM REGULATORY AFFAIRS PORTFOLIO LEADER): Restart 1999 and check on reutnr Assessment & Plan (02/20/2020 11:10 AM CDT): Off d and droopped to 45 and stay off for now. Lucia 10.3 and not want higher Check d on return and seee if cont to drop Assessment & Plan (12/19/2019 4:35 PM REGULATORY AFFAIRS PORTFOLIO LEADER): Restart d bvut at 1999 Assessment & Plan (09/20/2019 8:13 AM REGULATORY AFFAIRS PORTFOLIO LEADER): [place] [id number] [place] [id number] a day and wilkl Go to mond thru f rid and skip tue and and check on reutnr. Letting this get low nl So not to drive up the calc clevels Assessment & Plan (06/23/2017 11:27 AM CDT): D lev els jenny not push to nl as that will up the blood levels and urine levels of calcium Hypercalcemia 03/23/2014 Overview (02/09/2017): Hypercalcemia Assessment & Plan (06/16/2022 1:58 PM CDT): 10.4 and watch Assessment & Plan (12/23/2021 10:13 AM REGULATORY AFFAIRS PORTFOLIO LEADER): Ca 10.1 and as long as nl then not a reason to chelo the pth Assessment & Plan (05/19/2021 10:10 AM CDT): Nl at 10.1 and watch as refereral if goes up and not able to drop Assessment & Plan (10/14/2020 11:45 AM REGULATORY AFFAIRS PORTFOLIO LEADER): Dropped back to 120 from off lucia and vit d and restart d But not calc. Assessment & Plan (02/20/2020 11:14 AM CDT): High nl at 10.3 and stay off d and oral calc Assessment & Plan (09/20/2019 8:15 AM REGULATORY AFFAIRS PORTFOLIO LEADER): droping bvir d wi ll hewlp and if cont ujp consider stopping hctz Assessment & Plan (01/24/2019 9:15 AM CDT): Calc to 10.8. First up in last yr and wioll recheck. Denies any changes or oral calcium. Will cont meds and watch high calciujm items and see if not Dropping ,if stays up and Further then surg referral and eval for pth surg Assessment & Plan (07/26/2018 12:07 PM CDT): Calc at 10.1 and controlled Assessment & Plan (06/23/2017 11:29 AM CDT): Blood levels of calcium down and nl at 10.1 and nl. Cont to limit intake of calcium. oxalaote levels low and not an issue. Will suggest adding low dose allopurinol and that will drop the blod levels and urie levels of uric acid Calculus of kidney 03/23/2014 Overview (02/10/2017): Kidney stone Assessment & Plan (07/26/2018 12:06 PM CDT): uro referral when new one in town. Assessment & Plan (06/23/2017 11:25 AM CDT): Screens for urine calcium at 167 and below mid range. The urine uric acids as well low midline. Can alwallys push to swapnil lower for stone preventio. psuhng fluids and positive lflow of pee Will always help Resolved Problems Problem Noted Date Diagnosed Date Resolved Date PMR (polymyalgia rheumatica) 06/20/2024 06/20/2024 Simple chronic bronchitis 06/16/2022 Assessment & Plan (06/16/2022 1:51 PM CDT): Smoker with more cough setup screning ct lungs, quit smoking Smoker unmotivated to quit 06/16/2022 0 12/16/2022 Assessment & Plan (06/16/2022 1:52 PM CDT): Smoked for 50 yrs and still smoking cough ct scan low dose Weight loss 08/24/2021 08/04/2022 Overview (08/24/2021): Added automatically from request for surgery [id number] Assessment & Plan (02/03/2022 2:50 PM CDT): No further weight loss reported. Has actually been gaining weight recently. Encouraged to follow portion control. Orthostatic hypotension 07/27/2021 04/0 04/2022 Assessment & Plan (07/27/2021 11:57 AM CDT): stopoing the castapress and recheck bp and Next will be aded pill to drop Functional diarrhea 03/04/2021 12/23/19 Assessment & Plan (05/19/2021 10:13 AM CDT): astop antiacids and see if helps gtrial nortrip if not helping and or referral also Assessment & Plan (03/23/2021 11:34 AM CDT): Diarrhea workup neg with neg inflamation tests and stool studies. Now back to nl and cont On Assessment & Plan (03/04/2021 4:29 PM CDT): 2 wks of 3-4 diarrhea . Check stool for infectionous sources. Then bratty diet immodium Limit coffee. Check stools no uncooked vegies. immodium rn one stol taken in. 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 Not showing signs from neck . Ventral hernia without obstr uction or gangrene 11/08/2019 12/21/2019 Overview (11/08/2019): Added automatically from request for surgery [id number] Assessment & Plan (12/19/2019 4:33 PM REGULATORY AFFAIRS PORTFOLIO LEADER): Post op healing well. [place] out frid. Recurrent ventral incisional hernia 10/15/2019 12/21/2019 Assessment & Plan (12/19/2019 4:35 PM REGULATORY AFFAIRS PORTFOLIO LEADER): Mesh removed and replaced holding well BMI 37.0-37.9, adult 09/20/2019 020 Assessment & Plan (09/20/2019 8:14 AM REGULATORY AFFAIRS PORTFOLIO LEADER): Dropping and needs to keep dropping wt. Recurrent incisional hernia 07/26/2018 10/15/2019 Assessment & Plan (01/24/2019 9:18 AM CDT): Referral for eval of rx. Assessment & Plan (11/15/2018 1:29 PM REGULATORY AFFAIRS PORTFOLIO LEADER): No acute Issues.no jose.obstruction. No issue that force surg now. Offer to refer to [facility] for [facility]ion. But For now drop wt and become a Better surg candidate. At point that can see on an soft softobstruction that self deals with. If crashes then go to [facility]. Assessment & Plan (07/26/2018 12:23 PM CDT): 22 cm. Reducable. Showed how and was suppprised. Suggested [facility] referral to Get the sxoop on waht would be required to get it repired. Bogdan use messh I am sure and would be a risk to reoccur. Class 3 severe obesity due t o excess calories with body mass index (BMI) of 50.0 to 59.9 in adult 06/23/2017 08/30/2025 Assessment & Plan (07/27/2021 12:06 PM CDT): Work to keep wt swapnil poing Assessment & Plan (05/19/2021 10:11 AM CDT): Wt slowly inching down but needs more and will write it all downMorbid obesity is a bmi of 40 or more. Targeted weight loss with portion controll(calorie restriction) ,increased basal activity Levels along with adding an exercise program to lead to gradual weight loss,.Any program of change from weight watchers. To [employer]ra system along with others work. Assessment & Plan (03/23/2021 11:35 AM CDT): Morbid obesity is a bmi of 40 or more. Targeted weight loss with portion controll(calorie restriction) ,increased basal activity Levels along with adding an exercise program to lead to gradual weight loss,.Any program of change from weight watchers. To nutra system along with others work. Assessment & Plan (12/29/2020 1:39 PM REGULATORY AFFAIRS PORTFOLIO LEADER): Gained wt. Assessment & Plan (11/18/2020 3:24 PM REGULATORY AFFAIRS PORTFOLIO LEADER): Morbid obesity is a bmi of 40 or more. Targeted weight loss with portion controll(calorie restriction) ,increased basal activity Levels along with adding an exercise program to lead to gradual weight loss,.Any program of change from weight watchers. To nutra system along with others work. Assessment & Plan (10/14/2020 11:46 AM REGULATORY AFFAIRS PORTFOLIO LEADER): Start at first to stop gain and as depression comes under contorll will be better able to do this Assessment & Plan (05/16/2019 8:31 AM CDT): The patient was counseled on the importance of maintaining a healthy weight and the risks of obesity. Weight loss recommended. Assessment & Plan (01/24/2019 9:18 AM CDT): Morbid obesity is a bmi of 40 or more. Targeted weight loss with portion controll(calorie restriction) ,increased basal activity Levels along with adding an exercise program to lead to gradual weight loss,.Any program of change from weight watchers. To nutra system along with others work. Assessment & Plan (07/26/2018 12:09 PM CDT): Morbid obesity is a bmi of 40 or more. Targeted weight loss with portion controll(calorie restriction) ,increased basal activity Levels along with adding an exercise program to lead to gradual weight loss,.Any program of change from weight watchers. To nutra system along with others work. Assessment & Plan (03/29/2018 10:51 AM CDT): Morbid obesity is a bmi of 40 or more. Targeted weight loss with portion controll(calorie restriction) ,increased basal activity Levels along with adding an exercise program to lead to gradual weight loss,.Any program of change from weight watchers. To nutra system along with others work. Assessment & Plan (11/29/2017 9:14 AM [facility]): Morbid obesity is a bmi of 40 or more. Targeted weight loss with portion controll(calorie restriction) ,increased basal activity Levels along with adding an exercise program to lead to gradual weight loss,.Any program of change from weight watchers. To nutra system along with others work. Assessment & Plan (06/23/2017 11:26 AM CDT): Morbid obesity is a bmi of 40 or more. Targeted weight loss with portion controll(calorie restriction) ,increased basal activity Levels along with adding an exercise program to lead to gradual weight loss,.Any program of change from weight watchers. To nutra system along with others work. Moderate episode of recurren t major depressive disorder 06/23/2017 11/09/2024 Assessment & Plan (06/16/2022 1:56 PM CDT): Probably a little Down And declines meds changs Assessment & Plan (07/27/2021 11:59 AM CDT): Well contorlled and doing well Assessment & Plan (05/19/2021 10:11 AM CDT): depreosn contrlleda nd doing well with meds and no changds Assessment & Plan (03/23/2021 11:38 AM CDT): Well cotnrolled on meds Assessment & Plan (11/18/2020 3:16 PM [facility] LE[facility]ER): Well controled with the add seroquel at just 25 mg cont meds and stay on forhte4 near future Assessment & Plan (10/14/2020 11:44 AM [facility] LEADER): Fully active add seroquel 25 with 12 at night then after wk go to a full dtab if need and tolerates then max at 2 at night and re eval I 4 wks Assessment & Plan (02/20/2020 11:17 AM CDT): Depression acting up and on meds and after discussion declines adding meds such as buspar . Call back if changes mind Assessment & Plan (09/20/2019 8:13 AM [facility] [employer] LEADER): Good controll for now Assessment & Plan (11/15/2018 1:35 PM [facility] AFFAIRS [employer] LEADER): Switch to Cap for self pay cost but this is nont the time to stop it Assessment & Plan (07/26/2018 12:10 PM CDT): screeens nl for depression. Only residual is that of worry. Assessment & Plan (03/29/2018 10:52 AM CDT): m cont meds and likely sleep apnea making feel worse and not wiling to test Assessment & Plan (06/23/2017 11:21 AM CDT): meds working well and sc reening fror depression nl. Cont meds Hypercholesterolemia 03/23/2014 017 Overview (02/10/2017): Hypercholesterolemia Hypertension 03/23/2014 06/23/2017 Overview (02/10/2017): Hypertension Abnormal glucose tolerance test (GTT) 03/23/2014 06/23/2017 Overview (02/10/2017): IMPAIRED ORAL GLUCSE ANCELMO Mild intermittent asthma without complication 10/23/20 12 06/16/2022 Overview (02/09/2017): ASTHMA NOS Assessment & Plan (05/19/2021 6:18 PM CDT): Active but re eval off cig on return and see if not clears and improves wheze c ongestionAsthma is the excess production of secretions and reactivity/twitchiness of the breathing / bronchial tubes. This can be chronic ,acute on chronic or episodic(acute).Inhaled materials in the form of pollutants( gaseous or particles) pollens ,exercise or infections that are usually viral. Some people never have issues unless they get a cold/flu. Some are mainly induced by exercise.If you have a regular need (read nearly daily use or need) of a rescue inhaler like albuterol you should be started on or use your controller inhaler/medicines..There is a place for episodic steroid use for those who have had or are having a fairly severe spell.There is a need for regular use of controller meds(usually steroid containing inhalers) for those who are proven to have a chronically obstructed breathing pattern. If you feel you are getting worse then an urgent visit to the er is in order or at least a return to the clinic for a re-evaluation of your meds/treament. Assessment & Plan (02/20/2020 11:09 AM CDT): withbout issues This was a telemedicine visit with victor manuel vazquez took place via phone During the visit, I was located office and the patient was located home. The session started at 10;30 and ended at 10;55 The patient has been informed that the visit may not be secure and acknowledged the information. I have explained the option of participating in a telephone or video visit during the COVID-19 public health emergency to the patient. After being given an opportunity to ask questions about and discuss this type of visit, the patient verbally consented to proceeding with the telephone / video visit. The patient understands that this service replaces an office visit and they may be billed and/or responsible for any applicable copayments. Assessment & Plan (07/26/2018 12:29 PM CDT): Feels breathing much bvetter with wt off and most of issue was Weight and not asthma. s adolfo nl fvc 143 and fev1 155 and ratio 88. All very nl. Great. Assessment & Plan (06/23/2017 11:28 AM CDT): The asthma controll ed but smoking not helpful. Encounters Date Type Department Care Team Description 10/15/2025 Results Follow-Up [facility] [address] [phone] Celestina Strong MA Urinalysis reflex to microscopic and culture Urine, Urinalysis, microscopic only, Urine culture Urine 10/14/2025 Orders Only [facility] Health Information Management [address] [place] [phone] Deepak Clarke PA 10/11/2025 Telephone [facility] [address] [place] [address] [place] [phone] Zabrina Austin NP 10/08/2025 12:10 PM [facility] Lab [address] [address] Recurrent UTI 10/08/2025 9:00 AM [facility] [employer] LEADER Ancillary Procedure [facility] [address] [place] [address] [address] [place] [address] Coronary artery disease involving eklutna coronary artery of eklutna heart without angina pectoris 10/08/2025 Telephone [facility] [address] [place] [address] [place] [phone] Danya Srinivasan RMA 10/08/2025 Orders Only [facility] [address] [place] [address] [place] [phone] Gray Gamino MD Recurrent UTI (Primary Dx) 10/07/2025 Telephone [facility] [address] [place] [address] [place] [phone] Danya Srinivasan RMA Med Management 10/01/2025 2:00 PM [facility] [employer]ER Pre-Admission Testing [facility] for Preoperative Assessment and Planning [facility] ([facility]) [address] [place] [phone] Preop testing (Primary Dx) 10/01/2025 11:45 AM [facility] [employer]ER Office Visit [facility] at [address] [place] [address] Alexis Borjas MD Coronary artery disease involving eklutna coronary artery of eklutna heart without angina pectoris (Primary Dx); Infrarenal abdominal aortic aneurysm (AAA) without rupture 09/19/2025 1:15 PM [facility] [employer] LE[facility]ER [facility] [address] [place] [address] [address] [place] [address] Dino Larios MD Recurrent UTI (Primary Dx) 09/16/2025 Orders Only [facility] Primary Care at [address] [place] [address] Deepak Clarke PA 09/12/2025 Results Follow-Up [facility] Primary Care at [address] [place] [address] Deepak Clarke PA Urinalysis reflex to microscopic, Urinalysis, microscopic only, Urine culture Urine, bladder 09/11/2025 12:00 PM [facility] - 09/11/2025 11:59 PM [facility] [employer] LEADER Hospital Encounter [address] [address] Recurrent UTI Discharge Disposition: Discharge to home or self care 09/11/2025 11:15 AM [facility]ER Office Visit [facility] Primary Care at [address] [place] [address] Deepak Clakre PA Abdominal aortic aneurysm (AAA) without rupture, unspecified part (Primary Dx); Benign hypertension; Pure hypercholesterolemia ; Tobacco abuse; Endometrial hyperplasia; Recurrent UTI; Recurrent major depressive disorder, in partial remission; Age-related osteoporosis without current pathological fracture; Hyperparathyroidism; Morbid obesity with BMI of 45.0-49.9, adult (HCC) 09/11/2025 Orders Only [facility] Primary Care at [address] [phone] Deepak Clarke PA Endometrial hyperplasia (Primary Dx); Recurrent UTI 09/11/2025 Results Follow-Up [facility] Primary Care at [address] [phone] Deepak Clarke PA CTA Abdomen Pelvis 09/09/2025 1:00 PM [facility] [employer]ER Office Visit [facility] [address] [facility] Medical Office Building [address] [place] [phone] Gray Gamino MD Infrarenal abdominal aortic aneurysm (AAA) without rupture (Primary Dx); Morbid obesity (HCC); Recurrent UTI 09/09/2025 Orders Only [facility] Primary Care at [address] [phone] Deepak Clarke PA Personal history of nicotine dependence (Primary Dx) 08/30/2025 8:35 AM CDT Lab [address] [phone] 08/30/2025 8:26 AM CDT - 08/30/2025 11:59 PM CDT Hospital Encounter [address] lung screening; Lung nodule; Abdominal aortic aneurysm (AAA), unspecified part, unspecified whether ruptured Discharge Disposition: Discharge to home or self care 08/29/[address] [address] Fannie Schultz 08/22/2025 Telephone [facility] Primary Care at [address] [phone] Deepak Clarke PA 08/22/2025 Orders Only [facility] Primary Care at [address] [phone] Deepak Clarke PA Abdominal aortic aneurysm (AAA) without rupture, unspecified part (Primary Dx) 08/20/2025 Orders Only [facility] Primary Care at [address] [phone] Deepak Clarke PA Abdominal aortic aneurysm (AAA), unspecified part, unspecified whether ruptured (Primary Dx); Urinary tract infection without hematuria, site unspecified 08/20/2025 Orders Only [facility] Primary Care at [address] [place] [phone] Deepak Clarke PA 08/19/2025 Telephone [facility] Primary Care at [address] [place] [phone] Deepak Clarke PA Medical Question/Miscellaneo us 08/16/2025 Results Follow-Up [facility] Primary Care at [address] [place] [phone] Deepak Clarke PA US Abdominal Aorta, CT Chest WO Contrast F/U Lung Screen Protocol 08/15/2025 Orders Only [facility] Primary Care at [address] [place] [phone] Deepak Clarke PA Urinary frequency (Primary Dx); Recurrent UTI 08/15/2025 Results Follow-Up [facility] Medical [facility] Primary Care at [address] [place] [phone] Deepak Clarke PA Urinalysis reflex to microscopic, Urine culture Urine, bladder, Urinalysis, microscopic only 08/15/2025 Telephone [facility] Primary Care at [address] [place] [phone] Deepak Clarke PA Medical Question/Miscellaneo us 08/13/2025 10:45 AM CDT Lab [address] [phone] Acute cystitis with hematuria 08/13/2025 10:00 AM CDT - 08/13/2025 11:59 PM CDT Hospital Encounter [facility] [address] [place] [address] Abdominal aortic aneurysm (AAA) without rupture, unspecified part Discharge Disposition: Discharge to home or self care 08/02/2025 Telephone [facility] [address], [place] [place] [address] Jean Paul Al MD 07/30/2025 Telephone [facility] Primary Care at [address] [place] [address] Deepak Clarke PA Medication Request 07/26/2025 Orders Only [facility] Primary Care at [address] [place] [address] Deepak Clarke PA Abdominal aortic aneurysm (AAA) without rupture, unspecified part (Primary Dx); Lumbar spondylosis; Lumbar radiculopathy; Abnormal CT lung screening; Lung nodule from Last 3 Months Immunizations Immunization Administration Dates Next Due Influenza, Quadrivalent, Hig h Dose, Preservative Free, Intrr 09/09/2023,08/05/2022,07/27/2021,09/10 Influenza, Quadrivalent, Spl it, Preservative Free, Intradermal 10/08/2016,08/26/2015 Influenza, Split 10/23/2012 Influenza, Trivalent, High D ose, Split, Preservative Free, Intramuscular 09/11/2025,11/09/2024,09/20/2019,07/26 Influenza, Unspecified 09/11/2025(Deferr ed: Patient Refused),11/09/2024(Deferred: Patient Refused),08/09/2024(Deferred: Patient Refused),06/16/2022(Deferred: Patient ill today) Predect SARS-CoV-2 Monovalent Vaccination (12+ Yrs) PURPLE 10/08/2021,01/22/2021,01/01/2021 Pneumococcal Conjugate PCV 13 08/26/2015 Pneumococcal Polysaccharide PPV23 06/23/2017 ZOSTER LIVE 02/16/2014 Surgical History Surgery Date Site/Laterality Comments HERNIA REPAIR Herniorrhaphy TUBAL LIGATION 11/07/1983 - 11/06/1984 Bilateral tubal ligation OTHER SURGICAL HISTORY 11/07/1979 - 11/06/1980 : OTHER SURGICAL HISTORY 11/07/1982 - 11/06/1983 : spontaneous HERNIA REPAIR Hernia repair KIDNEY SURGERY Kidney Surgery HERNIA REPAIR Hernia Surgery OTHER SURGICAL HISTORY Growth Removed from side of head COLONOSCOPY 08/27/2021 change in bowel habits/first screening SECTION 11/07/1983 - 11/06/1984 LITHOTRIPSY 11/07/2010 - 11/06/2011 Medical History Medical History Date Comments Hx Other Medical hernias 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 Hx Other Medical 2005 Hernia, abdomin al Hx Other Medical kidney or bladd er problems Hyperlipidemia Hyperlipidemia Hypertension Hypertension Hx Other Medical 1979 ; Outc ome: 40 week 8 lb(s) 2 oz Female Hx Other Medical 1981 ; Outc ome: 40 week 9 lb(s) 9 oz Male Hx Other Medical 1982 ; Outc ome: Unknown sex Hx Other Medical 1983 ; Comm ents: twin; Outcome: 6 lb(s) 2 oz Male Hx Other Medical 1983 ; Comm ents: twin; Outcome: 7 lb(s) 14 oz Male Calculus of kidney kidney stones Depression Depression Hypercholesterolemia High choles terol Hyperparathyroidism Anxiety Family History Medical History Relation Name Comments Heart disease Father Heart disease; Hypertension Mother Hypertension; Other Mother kidney or bladd er problems; Stroke Mother Stroke; high bl ood pressuer diabetes Other Other 1 No family histo ry of calcium disorders; Hyperlipidemia Other 2 Family histor y of Hyperlipidemia; Hypertension Other 3 Family history of Hypertension; Diabetes Other 4 Family history of Diabetes mellitus; Anesthesia problems Neg Hx Breast cancer Neg Hx Ovarian cancer Neg Hx Thyroid cancer Neg Hx Relation Name Status Comments Father Mother Alive Other 1 Other 2 Other 3 Other 4 Social History Tobacco Use Types Packs/Day Years Used Date Smoking Tobacco: Former Cigarettes 0.5 57.3 1 966 - 08/07/2025 Smokeless Tobacco: Never Tobacco Cessation:Counseling Given: Not Answered Alcohol Use Standard Drinks/Week Comments Not Currently [...] on file Legal Sex Female 11:52 PM [facility] Gender Identity Not on file Sexual Orientation Not on file Obstetrics History Para Term AB IAB SAB Ectopic Multiple Livin g Live Births 4 4 3 Date Outcome GA Total Labor Labor/2nd/3rd Weight Sex Type Anes PTL Angela A1 A5 Name Clin Term Term Term Para Last Filed Vital Signs Vital Sign Reading Time Taken Comments Blood Pressure 102/72 10/01/2025 2:25 PM [facility] Pulse 100 10/01/2025 2:20 PM [facility] [employer] [facility]ER Temperature 36.1 C (97 F) 09/19/2025 1:07 PM [facility] LE[facility]ER Respiratory Rate 18 10/01/2025 2:20 PM [facility] LE[facility]ER Oxygen Saturation 92% 10/01/2025 2:20 PM [facility] LE[facility]ER Inhaled Oxygen Concentration - - Weight 103 kg (227 lb 1.2 oz) 10/01/2025 2:20 PM [facility] Height 144.8 cm (4' 9) 10/01/2025 2:20 PM [facility]ER Body Mass Index 49.14 10/01/2025 2:20 PM [facility] [employer] LE[facility]ER Plan of Treatment Upcoming Encounters Date Type Department Care Team (Late st Contact Info) Description 12/03/2025 7:30 AM [facility] [employer] Hospital Encounter [facility] Operating Room 1 [place] [phone] [place] [address] [place] [address] Infrarenal abdominal aortic aneurysm (AAA) without rupture 12/03/2025 7:30 AM [facility] Anesthesia Event [facility] Operating Room [address] [place] [phone] Jena Graham NP [address] [facility] [phone] [place] [address] 12/03/2025 7:30 AM [facility] - 12/03/2025 12:10 PM [facility] Surgery [facility] Operating Room 1 [facility] [place] [address] [place] [address] [place] [address] ENDOVASCULAR REPAIR - AORTIC Health Maintenance Due Date Last Done Comments DTaP/Tdap/Td Vaccine (1 - Tdap) 02/16/1963 Hepatitis B Screening 02/16/1970 Zoster Vaccine (2 of 3) 04/13/2014 02/16/2014 Covid-19 Vaccine (5 - 2024-2 6 season) 2025 07/17/2023, 10/08/2021, 01/22/2021, Additional history exists Well Visit 65+ 11/09/2025 11/09/2024, 01/2023, 11/04/2022, Additional history exists Osteoporosis Screening-Bone Density Scan 12/13/2025 12/13/2023, 05/22/2012 Breast Cancer Screening-Mammogram 04/04/2026 04/04/2025, 12/13/2023, 11/12/2022, Additional history exists Colon Cancer Screening-Colonoscopy 08/27/2026 08/27/2021, 08/27/2021 Lung Cancer Screening 08/31/2026 08/30/2025 , 04/04/2025, 12/13/2023, Additional history exists Depression Screening 09/11/2026 09/11/2025, 09/11/2025, 07/18/2025, Additional history exists Fall Risk Assessment 10/01/2026 10/01/2025, 09/11/2025, 07/18/2025, Additional history exists Hepatitis C Screening Completed 01/25/2017 Pneumococcal vaccine 65+ Completed 06/23/2017, 08/08 Colon Cancer Screening-DNA Stool Discontinued 08/27/2021, 08/27/2021, 09/13/2018 Influenza Vaccine Completed 09/11/2025, , 09/09/2023, Additional history exists Goals Goal Patient Goal Type Associated Problems Recent Progress Patient-Stated? Author Joel beckett Goal Care Plan Autogenerated Problem No Juan Ramon Duarte RN Medical Devices Implanted Type Area Office Correspondent Device Identifier Shelf Expiration Date Model / Serial / Lot [employer]/C R Bard [id number] Monofilament Soft Lightweight Low Profile Square - [id number] Implanted:Qty: 1 on 12/06/2019 by Makayla Vargas MD at [facility] N/A: Abdomen [employer] [id number] 07/04/2024 [id number] / / [id number] Procedures Procedure Name Priority Date/Time Associated Diagnosis Comments SCAN - LABS 10/14/2025 URINALYSIS, MICROSCOPIC ONLY Routine 10/08/2025 12:13 PM [facility] Recurrent UTI URINE CULTURE Routine 10/08/2025 12:13 PM [facility] [employer] [facility]ER URINALYSIS AND REFLEX TO MICROSCOPIC AND CULTURE Routine 10/08/2025 12:13 PM [facility] Recurrent UTI NM MPI SPECT (REST AND/OR STRESS) MULTIPLE STUDIES Schedule Routine, Read Routine (OP Routine) 10/08/2025 11:32 AM [facility] Coronary artery disease involving eklutna coronary artery of eklutna heart without angina pectoris EGFR Routine 10/01/2025 4:15 PM [facility] LE[facility]ER Preop testing URINALYSIS, MICROSCOPIC ONLY Routine 10/01/2025 4:15 PM [facility] [employer]ER Preop testing DIFFERENTIAL AUTO Routine 10/01/2025 4:1 5 PM [facility] [employer]ER Preop testing CPAP APTT ALGORITHM Routine 10/01/2025 4 :15 PM [facility] [employer]ER Preop testing TYPE AND SCREEN 14 DAY Routine 10/01/2025 4:15 PM [facility] [employer] LE[facility]ER Preop testing CBC WITH AUTO DIFFERENTIAL Routine 10/01/2025 4:15 PM [facility] [employer] LE[facility]ER Preop testing BASIC METABOLIC PANEL Routine 10/01/2025 4:15 PM [facility] [employer] LE[facility]ER Preop testing URINE CULTURE Routine 10/01/2025 4:15 PM [facility] [employer] LE[facility]ER URINALYSIS AND REFLEX TO MICROSCOPIC AND CULTURE Routine 10/01/2025 4:15 PM [facility]IRS [employer] LEADER Preop testing ECG 12-LEAD Routine 10/01/2025 3:54 PM [facility] [employer] LEADER Preop testing URINALYSIS, MICROSCOPIC ONLY Routine 09/11/2025 12:00 PM [facility] [employer] LE[facility]ER Recurrent UTI URINALYSIS AND REFLEX TO MICROSCOPIC Routine 09/11/2025 12:00 PM [facility]IRS [employer] LEADER Recurrent UTI URINE CULTURE Routine 09/11/2025 12:00 PM [facility]IRS [employer] LEADER Recurrent UTI CTA ABDOMEN PELVIS W WO CONTRAST Schedule Routine, Read Routine (OP Routine) 08/30/2025 9:36 AM CDT Abdominal aortic aneurysm (AAA), unspecified part, unspecified whether ruptured CT CHEST WO CONTRAST F/U LUNG SCREEN PROTOCOL Schedule Routine, Read Routine (OP Routine) 08/30/2025 9:[address] lung screening Lung nodule CREATININE, WHOLE BLOOD STAT 08/30/2025 8:46 AM CDT US ABDOMINAL AORTA Schedule Routine, Read Routine (OP Routine) 08/13/2025 11:08 AM CDT Abdominal aortic aneurysm (AAA) without rupture, unspecified part URINALYSIS, MICROSCOPIC ONLY Routine 08/13/2025 10:06 AM CDT Acute cystitis with hematuria URINALYSIS AND REFLEX TO MICROSCOPIC Routine 08/13/2025 10:06 AM CDT Acute cystitis with hematuria URINE CULTURE Routine 08/13/2025 10:06 AM CDT Acute cystitis with hematuria DIAGNOSTIC MAMMOGRAM BILATERAL W SON Schedule Routine, Read Routine (OP Routine) 04/04/2025 10:24 AM CDT Abnormal mammogram DEXA AXIAL SKELETON BONE DENSITY 1 OR MORE SITES Schedule Routine, Read Routine (OP Routine) 12/13/2023 8:58 AM [facility] Other specified disorders of bone density and structure, multiple sites COLONOSCOPY 08/27/2021 2:05 PM CDT HEPATITIS C SCREENING Routine 01/25/2017 from Last 3 Months or Most Recently Relevant to Health Maintenance Results * SCAN - LABS (10/14/2025) us Deepak BUCK Final R esult * (ABNORMAL) Urinalysis reflex to microscopic and culture Urine (10/08/2025 12:13 PM [facility]) Color, ur Straw Yellow Clarity, ur Turbid(A) Clear [facility] Specific gravity, ur 1.006 1.003 - 1.030 [facility] pH, urine 6.5 [facility] Comment: Interpretive Data U rine pH is affected by diet, medications, systemic acid-base disturbances, and renal tubular function. pH may affect urinary stone formation. For example, urine pH below 6.0 may help reduce the tendency for calcium phosphate stones and pH greater than 6.0 may reduce the tendency for uric acid stone formation. Source: [facility] [employer] Current Interpretive Data was last revised on 2017 Protein, ur ql Trace Negative [facility] Glucose, ur ql Negative Negative [facility] Ketones, ur Negative Negative [facility] Bilirubin, ur Negative Negative [facility] Blood, ur 3+(A) Negative [facility] Urobilinogen, ur <2.0 <2.0 mg/dL [facility] Nitrite, ur Negative Negative [facility] Leukocyte esterase, ur 4+(A) Negative [facility] UA reflex comment Reflex to microscopic UA will be performed. [facility] Urine 10/08/2025 12:1 3 PM [facility] [employer] LEADER 10/08/2025 12:26 PM [employer] AFFAIRS PORTFOLIO LEADER us Zabrina Austin NP LAB MICROBIOLOGY - GENER AL ORDERABLES Final Result Performing Organization Address City/[facility]/[place] [address] [facility] [employer] [place], [place] [id number] * (ABNORMAL) Urinalysis, microscopic only (10/08/2025 12:13 PM [facility]AIRS PORTFOLIO LEADER) WBC, ur >50(A) 0 - 5 /HPF RBC, ur 11-20(A) 0 - 2 /HPF [facility] Epithelial cells, squamous, ur 1-5 0 - 5 /HPF [facility] Bacteria, ur 3+(A) [facility] Culture Reflex Comment Reflex to urine culture will be performed. [facility] Urine 10/08/2025 12:1 3 PM [facility]FFAIRS PORTFOLIO LEADER 10/08/2025 12:26 PM REG[facility]ATORY AFFAIRS PORTFOLIO LEADER Zabrina Austin NP LAB URINE ORDERABLES Fin al Result Performing Organization Address [facility] [place] [address] [address] Department [place] [address] * (ABNORMAL) Urine culture Urine (10/08/2025 12:13 PM [facility]AT[facility] AFFAIRS PORTFOLIO LEADER) Report Final Report: Greater than or equal to 100,000 colonies/mL of Escherichia coli (.) Comment:Testing performed by : [facility], [address] [place] [address] Organism ESCHERICHIA COLI [facility] Urine 10/08/2025 12:1 3 PM [facility]FFAIRS [employer]FOLIO LEADER 10/08/2025 3:36 PM REG[facility]ATORY AFFAIRS PORTFOLIO LEADER Narrative [facility] - 10/10/2025 10:52 AM [facility]ATORY AFFAIRS PORTFOLIO LEADER Urine culture reflexed based upon urinalysis results. Testing performed by [facility] Microbiology Laboratory ([phone]) Organism Antibiotic Method Susceptibility Escherichia coli Ampicillin INTERPRETATION Resistant Escherichia coli Cefazolin INTERPRETATION Susceptible Escherichia coli Nitrofurantoin INTERPRETATION Susceptible Escherichia coli Gentamicin INTERPRETATION Susceptible Escherichia coli Trimethoprim with Sulfamethoxazole IN TERPRETATION Susceptible Escherichia coli Meropenem INTERPRETATION Susceptible Escherichia coli Cefepime INTERPRETATION Susceptible Escherichia coli Ciprofloxacin INTERPRETATION Susceptible Escherichia coli Ceftazidime INTERPRETATION Susceptible Escherichia coli Ceftriaxone INTERPRETATION Susceptible Escherichia coli Piperacillin/Tazobactam INTERPRETATIO N Susceptible Escherichia coli Cephalexin INTERPRETATION Susceptible Escherichia coli Cefuroxime-axetil INTERPRETATION Susceptible Escherichia coli Cefdinir INTERPRETATION Susceptible Zabrina Austin NP LAB MICROBIOLOGY - GENER AL ORDERABLES Final [place] [address] Department [place] [address] * NM MPI SPECT (Rest and/or Stress) Multiple Studies (10/08/2025 11:32 AM [facility]AIRS PORTFOLIO LEADER) Anatomical Region Laterality Modality Body N/A Nuclear Medicine Narrative 10/08/2025 12:23 PM [facility]ATORY AFFAIRS PORTFOLIO LEADER Table formatting from the original result was not included. Images from the original result were not included. Nuclear Vasodilator One Day Rest/Stress Test Requesting Provider: Alexis Borjas MD Supervising Provider: Justin Robles MD Interpreting Physician: Maurizio Negrete MD Technologist: Mahnaz Broderick [facility] Victor Manuel Lemus 75 y.o. female (: 1950) Ht: 57 in Wt: 225 lb Hours since last meal/Caffeine: 14+ Activity Level: Low REASON FOR PERFORMING TEST: Pre-op Clearance/SOB/CAD on CT/SOB Active Chest Pain: Absent Abnormal ECG: Absent Known CAD: CAD on CT RISK FACTORS: Hypertension: Yes Hypercholesterolemia: Yes Diabetes: Absent Smoking History: Former Tobacco User Family History of premature CAD: Yes Medication List: Current Outpatient Medications Medication Sig Dispense Refill albuterol HFA (PROVENTIL HFA,VENTOLIN HFA,PROAIR HFA) 90 mcg/actuation inhaler Inhale 2 puffs every 4 (four) hours as needed for wheezing or shortness of breath (cough) (Patient taking differently: Inhale 2 puffs every 4 (four) hours as needed for wheezing or shortness of breath (cough)) 1 each 11 allopurinoL (ZYLOPRIM) 100 mg tablet TAKE 2 TABLETS BY MOUTH TWICE A DAY (Patient taking differently: Take 2 tablets (200 mg total) by mouth 2 (two) times a day) 360 tablet 3 aspirin 81 mg enteric coated tablet Take 1 tablet (81 mg total) by mouth every evening atorvastatin (LIPITOR) 20 mg tablet TAKE 1 TABLET BY MOUTH EVERY DAY (Patient taking differently: Take 1 tablet (20 mg total) by mouth 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 before 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) 90 tablet 3 celecoxib (CeleBREX) 200 mg capsule Take 1 capsule (200 mg total) by mouth daily (Patient taking differently: Take 1 capsule (200 mg total) by mouth every morning) 30 capsule 3 cholecalciferol (VITAMIN D-3) 5,000 unit tablet TAKE 1 TABLET BY MOUTH EVERY DAY (Patient taking differently: Take 1 tablet (5,000 Units total) by mouth 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 before breakfast) 90 tablet 3 cyanocobalamin (Vitamin B-12) 500 mcg tablet Take 1 tablet (500 mcg total) by mouth every other day estradioL (ESTRACE) 0.01 % (0.1 mg/gram) vaginal cream Insert 2 g into the vagina 2 (two) times a week bzzmujhomhg-xlijjvihp-vjnzukhq (Trelegy Ellipta) 200-62.5-25 mcg inhaler Inhale 1 puff daily (Patient taking differently: Inhale 1 puff 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 before breakfast) 1 each 11 hypromellose (SYSTANE GEL OPHT) Administer 1 drop into affected eye(s) daily as needed (eye irritation) lisinopriL (PRINIVIL,ZESTRIL) 30 mg tablet TAKE 1 TABLET BY MOUTH EVERY DAY (Patient taking differently: Take 1 tablet (30 mg total) by mouth every evening) 90 tablet 4 magnesium glycinate 100 mg tablet Take 1 tablet by mouth every evening mirabegron ER (MYRBETRIQ) 50 mg tablet extended release 24 hr Take 1 tablet (50 mg total) by mouth nightly (Patient taking differently: Take 1 tablet (50 mg total) by mouth nightly) 90 tablet 3 nitrofurantoin monohydrate (MACROBID) 100 mg capsule Take 1 capsule (100 mg total) by mouth 2 (two) times a day nystatin powder Apply topically 4 (four) times a day As needed for fungal rash (Patient taking differently: Apply 1 Application topically 4 (four) times a day As needed for fungal rash) 60 g 0 predniSONE (DELTASONE) 1 mg tablet TAKE 4 TABLETS BY MOUTH DAILY (Patient taking differently: Take 4 tablets (4 mg) by mouth 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 before breakfast) 120 tablet 3 spironolactone (ALDACTONE) 25 mg tablet Take 1 tablet (25 mg total) by mouth daily (Patient taking differently: Take 1 tablet (25 mg total) by mouth 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 (Patient taking differently: Take 1 capsule (75 mg total) by mouth every evening Take in combination with the 150 to equal 225mg.) 90 capsule 4 No current facility-administered medications for this visit. Resting EKG: Sinus Rhythm, PRWP, Non-Specific T-wave Abnormality Blood Pressure Heart Rate Pretest 121/83 86 Injection 0.4 mg Lexiscan 2 min 113/67 98 3 min 4 min 115/69 97 5 min 6 min 129/66 97 Comments/ Symptoms: lightheaded, nausea Time of Nuclear Tracer: given after Lexiscan injection Max HR: 108 HR Reactivity: 26% RESULTS: 1. Lexiscan vasodilator stress ECG negative for ischemia. 2. Lexiscan-induced side effects: yes 3. Heart Rate Reactivity: Normal 4. Induced arrhythmias noted: No. Myocardial Perfusion Imaging Rest/Stress/SPECT/Gated Imaging and Ejection Fraction Measurement Radiopharmaceuticals used: Tc-99m sestamibi IV(Lt Arm) 10.18 mCi (rest) and 38.71 mCi (stress) Technique: Standard myocardial perfusion images were obtained at least 30-40 minutes after resting intravenous injection of Tc-99m sestamibi IV. Subsequently, a pharmacological stress test was performed under the supervision of the news video editor, the results of which are above. The patient received 5ml Lexiscan (0.4mg Regadenoson) over 10-12 seconds followed by a 5ml saline flush and then Tc-99m sestamibi was injected intravenously followed by another 5ml saline flush. Standard myocardial images were obtained 30-45 minutes later. Findings: Image quality is technically adequate with no appreciable patient motion. There is a normal distribution of activity in the left ventricle myocardium on both rest and post-stress images. The computer estimated left ventricular ejection fraction is 71% (resting) and 68% (post-stress). Visual inspection of gated SPECT images confirm normal left ventricular volumes (68/22 ml), contractility and wall thickening. Visually confirmed ejection fraction is >50%. Opinion: 1. Left Ventricle Perfusion: Normal resting and stress images. 2. Left Ventricle Function: Normal size and wall thickness and normal systolic function (post-stress ejection fraction is visually confirmed at >50%). Myocardial Perfusion Imaging has an overall predictive accuracy of 85-90%. The sensitivity of the test is significantly diminished with submaximal stress. us Alexis Borjas MD IM NM PROCEDURES Final Result * TYPE AND SCREEN 14 DAY (10/01/2025 4:15 PM [facility]FFAIRS PORTFOLIO LEADER) Pathologist [facility] [place] Laura, indirect Negative ABO Rh A Positive [facility] Blood 10/01/2025 4:15 PM REGULATORY AFFAIRS PORTFOLIO LEADER 10/01/2025 5:11 PM REGULATORY AFFAIRS PORTFOLIO LEADER Narrative [facility] - 10/01/2025 6:14 PM REGULATORY AFFAIRS PORTFOLIO LEADER Is this test being ordered in advance for a procedure?->Yes Expected date of procedure:->10/09/25 Has the patient been transfused in the past 3 months?->No Has the patient been in the past 3 months?->No us Rosana Pruett ELECTRIC METER TECHNICIAN LAB BLOOD BANK TEST ORD ERABLES Final Result [facility] Department [place] [address] * (ABNORMAL) eGFR (10/01/2025 4:15 PM REGULATORY AFFAIRS PORTFOLIO LEADER) Pathologist [facility] [place] eGFR 54(L) >=60 mL/min/1. 73 m2 Comment: Interpretive Data Reference Interval Normal >/= 90 mL/min/1.73m2 Mildly decreased* 60 - 89 mL/min/1.73m2 Mildly to moderately decreased 45 - 59 mL/min/1.73m2 Moderately to severely decreased 30 - 44 mL/min/1.73m2 Severely decreased 15 - 29 mL/min/1.73m2 Kidney Failure < 15 mL/min/1.73m2 *Relative to young adult level Estimated glomerular filtration rate is determined by the 2020 CKD-EPI equation recommended by the National Kidney Foundation (A Unifying Approach to GFR Estimation: Recommendations of the NKF-ASK Task Force on Reassessing the Inclusion of Race in Diagnosing Kidney Disease, JASN 2020). The CKD-EPI equation should not be used for patients with unstable renal function and has not been validated in children and those over 70. Current interpretive data was last reviewed 2021. Blood 10/01/2025 4:15 PM REGULATORY AFFAIRS PORTFOLIO LEADER 10/01/2025 5:08 PM REGULATORY AFFAIRS PORTFOLIO LEADER us Rosana Pruett NP LAB BLOOD ORDERABLES nal Result [facility] Department [place] [address] * (ABNORMAL) Differential, auto (10/01/2025 4:15 PM REG[facility]ATORY AFFAIRS PORTFOLIO LEADER) Neutrophil abs 12.54(H) 1.50 - 6.50 K/cumm Imm gran abs 0.07 0.00 - 0.10 K/cumm [facility] Lymphocyte abs 1.40 0.80 - 3.30 K/cumm [facility] Monocyte abs 0.53 0.20 - 0.80 K/cumm [facility] Eosinophil abs 0.11 0.00 - 0.50 K/cumm [facility] Basophil abs 0.05 0.00 - 0.10 K/cumm [facility] Neutrophil pct 85.4 % [facility] Comment: Interpretive Data Percent cell count reference ranges are not reported, since discordance with absolute values may lead to misinterpretation of CBC data. Current Interpretive Data was last revised on 2018. Imm gran pct 0.5 % [facility] Comment: Interpretive Data Percent cell count reference ranges are not reported, since discordance with absolute values may lead to misinterpretation of CBC data. Current Interpretive Data was last revised on 2018. Lymphocyte pct 9.5 % [facility] Comment: Interpretive Data Percent cell count reference ranges are not reported, since discordance with absolute values may lead to misinterpretation of CBC data. Current Interpretive Data was last revised on 2018. Monocyte pct 3.6 % [facility] Comment: Interpretive Data Percent cell count reference ranges are not reported, since discordance with absolute values may lead to misinterpretation of CBC data. Current Interpretive Data was last revised on 2018. Eosinophil pct 0.7 % [facility] Comment: Interpretive Data Percent cell count reference ranges are not reported, since discordance with absolute values may lead to misinterpretation of CBC data. Current Interpretive Data was last revised on 2018. Basophil pct 0.3 % [facility] Comment: Interpretive Data Percent cell count reference ranges are not reported, since discordance with absolute values may lead to misinterpretation of CBC data. Current Interpretive Data was last revised on 2018. Blood 10/01/2025 4:15 PM REGULATORY AFFAIRS PORTFOLIO LEADER 10/01/2025 5:08 PM REGULATORY AFFAIRS PORTFOLIO LEADER [employer] ELECTRIC METER TECHNICIAN LAB BLOOD ORDERABLES Fi nal Result Performing Organization Address [facility] Co de Phone Number [facility] Department [place] [address] * CPAP aPTT algorithm (10/01/2025 4:15 PM REGULATORY AFFAIRS PORTFOLIO LEADER) aPTT 28 26 - 38 sec Comment: Interpretive Data Heparin therapeutic range: 66.0 - 100.0 seconds. Range based on correlation with therapeutic heparin activity range of 0.3 - 0.7 Units/mL. Blood 10/01/2025 4:15 PM REGULATORY AFFAIRS PORTFOLIO LEADER 10/01/2025 5:01 PM REGULATORY AFFAIRS PORTFOLIO LEADER [employer] ELECTRIC METER TECHNICIAN LAB BLOOD ORDERABLES Fi nal Result Performing Organization Address City/[facility] Co de Phone Number [facility] Department [place] [address] * (ABNORMAL) Urinalysis reflex to microscopic and culture Urine, clean voided (10/01/2025 4:15 PM REGULATORY AFFAIRS PORTFOLIO LEADER) Pathologist [facility] [place] Color, ur Yellow Yellow Clarity, ur Cloudy(A) Clear [facility] Specific gravity, ur 1.019 1.003 - 1.030 [facility] pH, urine 6.5 [facility] Comment: Interpretive Data U rine pH is affected by diet, medications, systemic acid-base disturbances, and renal tubular function. pH may affect urinary stone formation. For example, urine pH below 6.0 may help reduce the tendency for calcium phosphate stones and pH greater than 6.0 may reduce the tendency for uric acid stone formation. Source: [facility] Current Interpretive Data was last revised on 2017 Protein, ur ql 1+(A) Negative [facility] Glucose, ur ql Negative Negative [facility] Ketones, ur Trace Negative [facility] Bilirubin, ur Negative Negative [facility] Blood, ur 2+(A) Negative [facility] Urobilinogen, ur <2.0 <2.0 mg/dL [facility] Nitrite, ur Positive(A) Negative [facility] Leukocyte esterase, ur 3+(A) Negative [facility] UA reflex comment Reflex to microscopic UA will be performed. [facility] Urine, clean voided 10/01/2025 4:15 PM REGULATORY AFFAIRS PORTFOLIO LEADER 10/01/2025 5:01 PM REGULATORY AFFAIRS PORTFOLIO LEADER us Rosana Pruett NP LAB MICROBIOLOGY - GENE [facility] ORDERABLES Final Result [facility] Department [place] [address] * (ABNORMAL) CBC with auto differential (10/01/2025 4:15 PM REGULATORY AFFAIRS PORTFOLIO LEADER) Pathologist [facility] [place] WBC 14.70(H) 3.80 - 9.90 K/cumm Hgb 12.0 11.9 - 15.5 g/dL [facility] Hct 36.8 35.6 - 45.5 % [facility] Plt 344 150 - 400 K/cumm [facility] MPV 10.8 9.1 - 12.3 fL [facility] RBC 4.09 3.90 - 5.20 M/cumm [facility] MCV 90.0 81.3 - 96.4 fL [facility] MCH 29.3 27.1 - 33.3 pg [facility] MCHC 32.6 32.3 - 35.7 g/dL [facility] RDW CV 14.3 11.1 - 14.9 % [facility] RDW SD 46.4 35.7 - 48.1 fL [facility] NRBC abs 0.00 0.00 - 0.01 K/cumm [facility] Blood 10/01/2025 4:15 PM REGULATORY AFFAIRS PORTFOLIO LEADER 10/01/2025 5:08 PM REGULATORY AFFAIRS PORTFOLIO LEADER Rosana Carroll [employer] LAB BLOOD ORDERABLES Fi nal Result Performing Organization Address [facility] de Phone Number [facility] [place] [address] * (ABNORMAL) Urinalysis, microscopic only (10/01/2025 4:15 PM REGULATORY AFFAIRS PORTFOLIO LEADER) WBC, ur >50(A) 0 - 5 /HPF RBC, ur 21-50(A) 0 - 2 /HPF [facility] Epithelial cells, squamous, ur 1-5 0 - 5 /HPF [facility] Bacteria, ur 2+(A) [facility] Mucous, ur Present(A) [facility] Hyaline casts, ur 1-5 0 - 10 /LPF [facility] Culture Reflex Comment Reflex to urine culture will be performed. [facility] Urine, clean voided 10/01/2025 4:15 PM REGULATORY AFFAIRS PORTFOLIO LEADER 10/01/2025 5:01 PM REGULATORY AFFAIRS PORTFOLIO LEADER Rosana Carroll [employer] ELECTRIC METER TECHNICIAN LAB URINE ORDERABLES Fi nal Result Performing Organization Address [facility] de Phone Number [facility] [place] [address] * (ABNORMAL) Urine culture Urine, clean voided (10/01/2025 4:15 PM REGULATORY AFFAIRS PORTFOLIO LEADER) Report Final Report: Greater than or equal to 100,000 colonies/mL of Escherichia coli Greater than or equal to 100,000 colonies/mL of Escherichia coli #2 (.) Organism ESCHERICHIA COLI [facility] Organism ESCHERICHIA COLI [facility] Urine, clean voided 10/01/2025 4:15 PM REGULATORY AFFAIRS PORTFOLIO LEADER 10/01/2025 10:55 PM REGULATORY AFFAIRS PORTFOLIO LEADER Narrative [facility] - 10/04/2025 2:27 PM REGULATORY AFFAIRS PORTFOLIO LEADER Urine culture reflexed based upon urinalysis results. Testing performed by [facility] Microbiology Laboratory ([phone]) Organism Antibiotic Method Susceptibility Escherichia coli Ampicillin INTERPRETATION Resistant Escherichia coli Cefazolin INTERPRETATION Resistant Escherichia coli Nitrofurantoin INTERPRETATION Resistant Escherichia coli Gentamicin INTERPRETATION Susceptible Escherichia coli Trimethoprim with Sulfamethoxazole IN TERPRETATION Susceptible Escherichia coli Meropenem INTERPRETATION Susceptible Escherichia coli Cefepime INTERPRETATION Susceptible Escherichia coli Ciprofloxacin INTERPRETATION Susceptible Escherichia coli Ceftazidime INTERPRETATION Susceptible Escherichia coli Ceftriaxone INTERPRETATION Susceptible Escherichia coli Piperacillin/Tazobactam INTERPRETATIO N Susceptible Escherichia coli Cephalexin INTERPRETATION Resistant Escherichia coli Cefuroxime-axetil INTERPRETATION Resistant Escherichia coli Cefdinir INTERPRETATION Resistant Escherichia coli Ampicillin INTERPRETATION Resistant Escherichia coli Cefazolin INTERPRETATION Susceptible Escherichia coli Nitrofurantoin INTERPRETATION Intermediate Escherichia coli Gentamicin INTERPRETATION Susceptible Escherichia coli Trimethoprim with Sulfamethoxazole IN TERPRETATION Susceptible Escherichia coli Meropenem INTERPRETATION Susceptible Escherichia coli Cefepime INTERPRETATION Susceptible Escherichia coli Ciprofloxacin INTERPRETATION Susceptible Escherichia coli Ceftazidime INTERPRETATION Susceptible Escherichia coli Ceftriaxone INTERPRETATION Susceptible Escherichia coli Piperacillin/Tazobactam INTERPRETATIO N Susceptible Escherichia coli Cephalexin INTERPRETATION Susceptible Escherichia coli Cefuroxime-axetil INTERPRETATION Susceptible Escherichia coli Cefdinir INTERPRETATION Susceptible us Rosana Pruett ELECTRIC METER TECHNICIAN LAB MICROBIOLOGY - GENE RAL ORDERABLES Final Result [facility] Department [place] [address] * (ABNORMAL) Basic metabolic panel (10/01/2025 4:15 PM REGULATORY AFFAIRS PORTFOLIO LEADER) Sodium 139 135 - 145 mmol/L Potassium, pl 5.4(H) 3.3 - 4.9 mmol/L [facility] Chloride 107 97 - 110 mmol/L [facility] CO2 26 22 - 32 mmol/L [facility] Anion gap 6 2 - 15 mmol/L [facility] BUN 23 6 - 25 mg/dL [facility] Creatinine 1.08 0.60 - 1.10 mg/dL [facility] Glucose 106 70 - 199 mg/dL [facility] Comment: Interpretive Data Fasting glucose >/= 126 mg/dl is diagnostic for diabetes. Fasting is defined as no caloric intake for at least 8 hours. Fasting glucose between 100 mg/dl to 125 mg/dl is diagnostic of prediabetes. In a patient with classic symptoms of hyperglycemia or hyperglycemic crisis, a random glucose >/= 200 mg/dl is diagnostic for diabetes. In the absence of unequivocal hyperglycemia, results should be confirmed by repeat testing. The classification and Diagnosis of Diabetes Diabetes Care 2021; 46: S19-S40. Current interpretive data was last revised 2022. Calcium 10.5(H) 8.5 - 10.3 mg/dL [facility] Blood 10/01/2025 4:15 PM REGULATORY AFFAIRS PORTFOLIO LEADER 10/01/2025 5:08 PM REGULATORY AFFAIRS PORTFOLIO LEADER us Rosana Pruett NP LAB BLOOD ORDERABLES nal Result [facility] Department [place] [address] * ECG 12 lead (10/01/2025 3:54 PM REGULATORY AFFAIRS PORTFOLIO LEADER) Ventricular Rate EKG/Min 86 BPM [facility] Atrial Rate 86 BPM [facility] CT-Interval (MSEC) 136 ms [facility] QRS-Interval (MSEC) 82 ms [facility] QT-Interval (MSEC) 332 ms [facility] QTc 397 ms [facility] P [place] 35 degrees [facility] R [place] -21 degrees [facility] T [place] 23 degrees [facility] Diagnosis Normal sinus rhythm with sinus arrhythmia Inferior infarct , age undetermined Nonspecific T wave abnormality Abnormal ECG No previous ECGs available Confirmed by DEV SHAW M.D ([id number]) on 10/02/2025 3:40:40 PM [facility] 10/01/2025 3:54 PM [facility] 10/02/2025 3:40 PM [facility] us Rosana Carly Pruett NP ECG ORDERABLES Final R esult Performing Organization Address [facility]/ZIP Co de Phone Number [facility] * (ABNORMAL) Urinalysis reflex to microscopic (09/11/2025 12:00 PM [facility]) Color, ur Yellow Yellow Clarity, ur Turbid(A) Clear CERNER CH Specific gravity, ur 1.023 1.003 - 1.030 CERNER CH pH, urine 6.0 CERNER CH Comment: Interpretive Data U rine pH is affected by diet, medications, systemic acid-base disturbances, and renal tubular function. pH may affect urinary stone formation. For example, urine pH below 6.0 may help reduce the tendency for calcium phosphate stones and pH greater than 6.0 may reduce the tendency for uric acid stone formation. Source: [facility] [employer] Current Interpretive Data was last revised on 2017 Protein, ur ql 1+(A) Negative CERNER CH Glucose, ur ql Negative Negative CERNER CH Ketones, ur Trace Negative CERNER CH Bilirubin, ur Negative Negative CERNER CH Blood, ur 1+(A) Negative CERNER CH Urobilinogen, ur <2.0 <2.0 mg/dL CERNER CH Nitrite, ur Positive(A) Negative CERNER CH Leukocyte esterase, ur 4+(A) Negative CERNER CH UA reflex comment Reflex to microscopic UA will be performed. [facility]rine 09/11/2025 12:0 0 PM [facility] 09/11/2025 10:32 PM [facility] [employer] us Deepak BUCK LAB URINE ORDERABLES Fi nal Result C[facility]ER [address] Department [place] [address] * (ABNORMAL) Urinalysis, microscopic only (09/11/2025 12:00 PM [facility]) WBC, ur >50(A) 0 - 5 /HPF RBC, ur 21-50(A) 0 - 2 /HPF CERNER Epithelial cells, squamous, ur 1-5 0 - 5 /HPF CERNER Bacteria, ur 4+(A) CERNER CH Mucous, ur Present(A) CERNER Calcium oxalate crystals, ur 3+(A) CERNER Urine 09/11/2025 12:0 0 PM [facility] [employer] [facility] 09/11/2025 10:32 PM [facility] [employer] us Deepak BUCK LAB URINE ORDERABLES Fi nal Result [facility] [address] Department [place] [address] * (ABNORMAL) Urine culture Urine, bladder (09/11/2025 12:00 PM [facility] [employer]) Report Final Report: Greater than or equal to 100,000 colonies/mL of Escherichia coli Greater than or equal to 100,000 colonies/mL of Escherichia coli #2 Greater than or equal to 100,000 colonies/mL of Escherichia coli #3 (.) Comment:Testing performed by : [facility], [address] [place]., [address] Organism [facility] [place] Organ[facility] ESCHERICHIA COLI CERNER Organism ESCHERICHIA COLI CERNER Urine, bladder 09/11/2025 12 :00 PM [facility] 09/12/2025 1:47 AM [facility] [employer] [facility]ER Narrative [facility] - 09/15/2025 8:31 AM [facility] [employer] [facility] Testing performed by [facility] ([phone]) Organism Antibiotic Method Susceptibility Escherichia coli Ampicillin INTERPRETATION Resistant Escherichia coli Cefazolin INTERPRETATION Resistant Escherichia coli Nitrofurantoin INTERPRETATION Intermediate Escherichia coli Gentamicin INTERPRETATION Susceptible Escherichia coli Trimethoprim with Sulfamethoxazole IN TERPRETATION Susceptible Escherichia coli Meropenem INTERPRETATION Susceptible Escherichia coli Cefepime INTERPRETATION Susceptible Escherichia coli Ciprofloxacin INTERPRETATION Susceptible Escherichia coli Ceftazidime INTERPRETATION Susceptible Escherichia coli Ceftriaxone INTERPRETATION Susceptible Escherichia coli Piperacillin/Tazobactam INTERPRETATIO N Susceptible Escherichia coli Cephalexin INTERPRETATION Resistant Escherichia coli Cefuroxime-axetil INTERPRETATION Resistant Escherichia coli Cefdinir INTERPRETATION Resistant Escherichia coli Ampicillin INTERPRETATION Resistant Escherichia coli Cefazolin INTERPRETATION Susceptible Escherichia coli Nitrofurantoin INTERPRETATION Susceptible Escherichia coli Gentamicin INTERPRETATION Susceptible Escherichia coli Trimethoprim with Sulfamethoxazole IN TERPRETATION Susceptible Escherichia coli Meropenem INTERPRETATION Susceptible Escherichia coli Cefepime INTERPRETATION Susceptible Escherichia coli Ciprofloxacin INTERPRETATION Susceptible Escherichia coli Ceftazidime INTERPRETATION Susceptible Escherichia coli Ceftriaxone INTERPRETATION Susceptible Escherichia coli Piperacillin/Tazobactam INTERPRETATIO N Susceptible Escherichia coli Cephalexin INTERPRETATION Susceptible Escherichia coli Cefuroxime-axetil INTERPRETATION Susceptible Escherichia coli Cefdinir INTERPRETATION Susceptible Escherichia coli Ampicillin INTERPRETATION Resistant Escherichia coli Cefazolin INTERPRETATION Susceptible Escherichia coli Nitrofurantoin INTERPRETATION Susceptible Escherichia coli Gentamicin INTERPRETATION Susceptible Escherichia coli Trimethoprim with Sulfamethoxazole IN TERPRETATION Susceptible Escherichia coli Meropenem INTERPRETATION Susceptible Escherichia coli Cefepime INTERPRETATION Susceptible Escherichia coli Ciprofloxacin INTERPRETATION Susceptible Escherichia coli Ceftazidime INTERPRETATION Susceptible Escherichia coli Ceftriaxone INTERPRETATION Susceptible Escherichia coli Piperacillin/Tazobactam INTERPRETATIO N Susceptible Escherichia coli Cephalexin INTERPRETATION Susceptible Escherichia coli Cefuroxime-axetil INTERPRETATION Susceptible Escherichia coli Cefdinir INTERPRETATION Susceptible Deepak BUCK LAB MICROBIOLOGY - GENE RAL ORDERABLES Final Result [facility] [address] Department [place] [address] * CT Chest WO Contrast F/U Lung Screen Protocol (08/30/2025 9:36 AM CDT) Anatomical Region Laterality Modality Chest N/A Computed Tomogra phy 09/02/2025 6:50 AM CDT Impressions 09/02/2025 6:50 AM CDT 1. LungRADS Category 2 (benign) . Recommend Low dose Screening CT of chest in 12 months. 2. Coronary disease. LungRADS Categories: 1 - Negative (no nodules, or only benign calcified or fat-containing nodules) 2 - Benign Appearance or Behavior (nodules with very low likelihood of becoming a clinically active cancer due to size or lack of growth) 3 - Probably Benign (probably benign findings-short term follow up suggested; includes nodules with a low likelihood of becoming a clinically active cancer) 4A,4B,4X - Suspicious (category 3 or 4 nodules with findings for which additional diagnostic testing and/or tissue sampling is recommended) S - Other (clinically significant or potentially clinically significant findings (non-lung cancer) C - Prior Lung Cancer (modifier for patients with a prior diagnosis of lung cancer who return to screening) Electronically signed by: Issac Sahni MD Narrative 09/02/2025 6:50 AM CDT EXAMINATION: Lung cancer screening CT of the Chest without intravenous contrast HISTORY: Lung Cancer Screening TECHNIQUE: Low radiation dose chest protocol. No intravenous contrast. Reconstructed slice width 1.[address] Dose Index 2.99 mGy. Dose-length product 84.3 mGy-cm. COMPARISON: CT lung screen 04/04/2025 FINDINGS: Lung nodules or findings of lung cancer: Unchanged 3 mm solid nodule in the right upper lobe on image 33. Previously noted 3 mm nodule along the margin of a segmental left lower lobe bronchus is not present on today's examination and may have represented mucous plugging. Another Previously noted 3 mm nodule in the left lower lobe has resolved. No new pulmonary nodules appreciated. Smoking related lung disease: Mild emphysema. There is biapical pleural-parenchymal scarring. Other findings: There is scarring in the lung bases. Central airways are patent. No pleural effusion or pneumothorax. Normal heart size. Coronary artery calcifications are present. No mediastinal lymphadenopathy. No axillary lymphadenopathy. There is a 2.3 cm left adrenal gland adenoma, similar to the comparison. There is no suspicious osseous lesion. There are degenerative changes of the thoracic spine. Procedure Note Issac Sahni MD - 09/02/2025 EXAMINATION: Lung cancer screening CT of the Chest without intravenous contrast HISTORY: Lung Cancer Screening TECHNIQUE: Low radiation dose chest protocol. No intravenous contrast. Reconstructed slice width 1.[address] Dose Index 2.99 mGy. Dose-length product 84.3 mGy-cm. COMPARISON: CT lung screen 04/04/2025 FINDINGS: Lung nodules or findings of lung cancer: Unchanged 3 mm solid nodule in the right upper lobe on image 33. Previously noted 3 mm nodule along the margin of a segmental left lower lobe bronchus is not present on today's examination and may have represented mucous plugging. Another Previously noted 3 mm nodule in the left lower lobe has resolved. No new pulmonary nodules appreciated. Smoking related lung disease: Mild emphysema. There is biapical pleural-parenchymal scarring. Other findings: There is scarring in the lung bases. Central airways are patent. No pleural effusion or pneumothorax. Normal heart size. Coronary artery calcifications are present. No mediastinal lymphadenopathy. No axillary lymphadenopathy. There is a 2.3 cm left adrenal gland adenoma, similar to the comparison. There is no suspicious osseous lesion. There are degenerative changes of the thoracic spine. IMPRESSION: 1. LungRADS Category 2 (benign) . Recommend Low dose Screening CT of chest in 12 months. 2. Coronary disease. LungRADS Categories: 1 - Negative (no nodules, or only benign calcified or fat-containing nodules) 2 - Benign Appearance or Behavior (nodules with very low likelihood of becoming a clinically active cancer due to size or lack of growth) 3 - Probably Benign (probably benign findings-short term follow up suggested; includes nodules with a low likelihood of becoming a clinically active cancer) 4A,4B,4X - Suspicious (category 3 or 4 nodules with findings for which additional diagnostic testing and/or tissue sampling is recommended) S - Other (clinically significant or potentially clinically significant findings (non-lung cancer) C - Prior Lung Cancer (modifier for patients with a prior diagnosis of lung cancer who return to screening) Electronically signed by: Issac Sahni MD Deepak BUCK IMG CT PROCEDURES Final Result * CTA Abdomen Pelvis (08/30/2025 9:36 AM CDT) Anatomical Region Laterality Modality Body N/A Computed Tomogra phy 08/31/2025 12:2 2 AM CDT Impressions 08/31/2025 12:22 AM CDT 1. 2 cm endometrial stripe is more conspicuous compared to prior contrast-enhanced CT studies. This may be chronic/stable but gynecology follow-up recommended to exclude early malignancy. 2. Decreased enhancement with surrounding inflammation in the lower pole right kidney raises concern for pyelonephritis. A 12 x 8 mm calculus has also migrated into the right renal pelvis with mild pelvic inflammation, no evidence of obstruction. 3. 5.2 x 5 cm AAA with large mural thrombus enlarged from 3.4 x 3 cm and 2019. Arteries otherwise unremarkable. 4. Chronic findings as above. Electronically signed by: Milana Amaral 08/31/2025 12:22 AM CDT EXAMINATION: CTA ABDOMEN PELVIS ORDERING HEALTHCARE PROVIDER: DEEPAK CLARKE HISTORY: Abdominal aortic aneurysm (AAA) suspected. TECHNIQUE: CT abdomen and pelvis with contrast . Reconstructed coronal and sagittal MPR images reviewed. All images stored on PACS. Automated exposure control was used as a dose optimization technique for this examination. COMPARISON: 07/16/2019 FINDINGS: Vascular: Descending thoracic aorta and upper abdominal aorta unremarkable other than scattered atherosclerotic plaque/calcification. 5.2 x 5 cm AAA with large mural thrombus, enlarged from 3.4 x 3 cm and 2019. Arteries otherwise unremarkable. Abdomen/pelvis lung bases clear. Heart size normal. Coronary calcifications. Liver and gallbladder unremarkable. Normal spleen. Moderate pancreatic atrophy. Left adrenal adenoma. Severe left renal atrophy. 12 x 8 mm right renal calculus in the pelvis with minimal pelvic inflammation, no clear obstruction. Right ureter and bladder unremarkable. Left ureter may have some retained function. Region of decreased enhancement in the lower pole of the right kidney with slight inflammation has an appearance that can be seen with pyelonephritis. Stomach and small bowel appear normal. Scattered noninflamed colonic diverticula. Normal appendix. Endometrial thickening at 1.8 cm. Overall uterine contour similar to the 2019 prior with prior study glands hypodensity of the endometrial region is new since the contrast enhanced study from 2017. No enlarged lymph nodes or free fluid is seen. Advanced disc disease and facet arthropathy. Vertebral body height and alignment are preserved. Advanced hip and SI joint arthrosis. Procedure Note Calixto Buckner MD - 08/31/2025 EXAMINATION: CTA ABDOMEN PELVIS ORDERING HEALTHCARE PROVIDER: DEEPAK CLARKE HISTORY: Abdominal aortic aneurysm (AAA) suspected. TECHNIQUE: CT abdomen and pelvis with contrast . Reconstructed coronal and sagittal MPR images reviewed. All images stored on PACS. Automated exposure control was used as a dose optimization technique for this examination. COMPARISON: 07/16/2019 FINDINGS: Vascular: Descending thoracic aorta and upper abdominal aorta unremarkable other than scattered atherosclerotic plaque/calcification. 5.2 x 5 cm AAA with large mural thrombus, enlarged from 3.4 x 3 cm and 2019. Arteries otherwise unremarkable. Abdomen/pelvis lung bases clear. Heart size normal. Coronary calcifications. Liver and gallbladder unremarkable. Normal spleen. Moderate pancreatic atrophy. Left adrenal adenoma. Severe left renal atrophy. 12 x 8 mm right renal calculus in the pelvis with minimal pelvic inflammation, no clear obstruction. Right ureter and bladder unremarkable. Left ureter may have some retained function. Region of decreased enhancement in the lower pole of the right kidney with slight inflammation has an appearance that can be seen with pyelonephritis. Stomach and small bowel appear normal. Scattered noninflamed colonic diverticula. Normal appendix. Endometrial thickening at 1.8 cm. Overall uterine contour similar to the 2019 prior with prior study glands hypodensity of the endometrial region is new since the contrast enhanced study from 2017. No enlarged lymph nodes or free fluid is seen. Advanced disc disease and facet arthropathy. Vertebral body height and alignment are preserved. Advanced hip and SI joint arthrosis. IMPRESSION: 1. 2 cm endometrial stripe is more conspicuous compared to prior contrast-enhanced CT studies. This may be chronic/stable but gynecology follow-up recommended to exclude early malignancy. 2. Decreased enhancement with surrounding inflammation in the lower pole right kidney raises concern for pyelonephritis. A 12 x 8 mm calculus has also migrated into the right renal pelvis with mild pelvic inflammation, no evidence of obstruction. 3. 5.2 x 5 cm AAA with large mural thrombus enlarged from 3.4 x 3 cm and 2019. Arteries otherwise unremarkable. 4. Chronic findings as above. Electronically signed by: Calixto Buckner M.D. Deepak BUCK IMG CT PROCEDURES Final Result * Creatinine, whole blood (08/30/2025 8:46 AM CDT) Creatinine, bld 1.08 0.60 - 1.30 mg/dL Blood 08/30/2025 8:46 AM CDT 08/30/2025 8:49 AM CDT us Notinfile Unknown LAB BLOOD ORDERABLES Final Res ult [facility] Department [place] [address] * US Abdominal Aorta (08/13/2025 11:08 AM CDT) Anatomical Region Laterality Modality Abdomen N/A Ultrasound 08/16/2025 8:33 AM CDT Narrative 08/16/2025 8:42 AM CDT EXAM DESCRIPTION: US ABDOMINAL AORTA REASON FOR STUDY: AAA TECHNIQUE: Grayscale images acquired of the aorta and stored on PACS. Selected color Doppler and spectral images recorded. COMPARISON: None. FINDINGS: AORTIC CALIBER MAXIMAL PROXIMAL: 2.6 x 2.6 cm. MID: 2.5 x 2.5 cm. DISTAL: The distal abdominal aorta is obscured scratch the distal abdominal aorta partially obscured by shadowing bowel gas. There is the distal abdominal aortic aneurysm, this is 5.0 x 5.0 cm with moderate mural thrombus. The craniocaudal extent of the aneurysm is not fully assessed due to shadowing bowel gas. ILIAC DIAMETER Iliac arteries are obscured by shadowing bowel gas. OTHER: No other significant finding. IMPRESSION: 1. Distal abdominal aortic aneurysm 5.0 x 5.0 cm with moderate mural thrombus. The craniocaudal extent of the aneurysm is not fully assessed due to shadowing bowel gas. Further assessment could be made with a CT angiogram abdomen and pelvis. Vascular surgical consultation is recommended. 2. Iliac arteries are obscured by shadowing bowel gas. REFERENCE: Please see below follow up recommendations for abdominal aortic aneurysm surveillance per Society for Vascular Surgery Guidelines: < 2.6 cm No follow up or future screenings necessary 2.62.9 cm Recommended ultrasound follow up every 5 years 3.0-3.4 cm Recommended ultrasound follow up every 3 years 3.5-3.9 cm Recommended ultrasound follow up every 12 months 4.0-4.9 cm Recommended ultrasound follow up every 12 months, vascular surgery consult 5.0-5.4 cm Recommended ultrasound follow up every 6 months, vascular surgery consult >= 5.5 cm Referral to vascular surgeon Based upon Society for Vascular Surgery Guidelines: J Vasc Surgery 2008 50: s2-s49; updated Nov 2017 J Vasc Surgery 67:2-77 THIS IS AN ELECTRONICALLY VERIFIED FINAL REPORT 08/16/2025 8:42 AM - Electronically signed by Franklin Brown M.D. CH: JEN Report ID: [id number] Reading Location: [place] [address] Procedure Note Franklin Brown MD - 08/16/2025 EXAM DESCRIPTION: US ABDOMINAL AORTA REASON FOR STUDY: AAA TECHNIQUE: Grayscale images acquired of the aorta and stored on PACS.Selected color Doppler and spectral images recorded. COMPARISON: None. FINDINGS: AORTIC CALIBER MAXIMAL PROXIMAL: 2.6 x 2.6 cm. MID: 2.5 x 2.5 cm. DISTAL: The distal abdominal aorta is obscured scratch the distalabdominal aorta partially obscured by shadowing bowel gas. There is the distal abdominal aortic aneurysm, this is 5.0 x 5.0 cm with moderate muralthrombus. The craniocaudal extent of the aneurysm is not fully assessed due toshadowing bowel gas. ILIAC DIAMETER Iliac arteries are obscured by shadowing bowel gas. OTHER: No other significant finding. IMPRESSION: 1. Distal abdominal aortic aneurysm 5.0 x 5.0 cm with moderate mural thrombus. The craniocaudal extent of the aneurysm is not fully assesseddue to shadowing bowel gas. Further assessment could be made with a CT angiogram abdomen and pelvis. Vascular surgical consultation is recommended. 2. Iliac arteries are obscured by shadowing bowel gas. REFERENCE: Please see below follow up recommendations for abdominal aortic aneurysm surveillance per Society for Vascular Surgery Guidelines: < 2.6 cm No follow up or future screenings necessary 2.62.9 cm Recommended ultrasound follow up every 5 years 3.0-3.4 cm Recommended ultrasound follow up every 3 years 3.5-3.9 cm Recommended ultrasound follow up every 12 months 4.0-4.9 cm Recommended ultrasound follow up every 12 months, vascularsurgery consult 5.0-5.4 cm Recommended ultrasound follow up every 6 months, vascularsurgery consult >= 5.5 cm Referral to vascular surgeon Based upon Society for Vascular Surgery Guidelines: J Vasc Surgery 2009Oct 50: s2-s49; updated Nov 2017 J Vasc Surgery 67:2-77 THIS IS AN ELECTRONICALLY VERIFIED FINAL REPORT 08/16/2025 8:42 AM - Electronically signed by Franklin Brown M.D. CH: JEN Report ID: [id number] Reading Location: [place] [address] us Deepak BUCK IMG US PROCEDURES Final Result * (ABNORMAL) Urinalysis reflex to microscopic (08/13/2025 10:06 AM CDT) Color, ur Yellow Yellow Clarity, ur Turbid(A) Clear C[facility]ER [facility] ([facility]ON[facility]) Specific gravity, ur 1.024 1.003 - 1.030 [facility] ([facility]) pH, urine 6.5 [facility] ([place]) Comment: Interpretive Data U rine pH is affected by diet, medications, systemic acid-base disturbances, and renal tubular function. pH may affect urinary stone formation. For example, urine pH below 6.0 may help reduce the tendency for calcium phosphate stones and pH greater than 6.0 may reduce the tendency for uric acid stone formation. Source: [facility] [employer] Current Interpretive Data was last revised on 2017 Protein, ur ql 1+(A) Negative CERNE R [facility] (ADONIS) Glucose, ur ql Negative Negative CERNE R [facility] ([place]) Ketones, ur Negative Negative CERNER A [facility] (ADONIS) Bilirubin, ur Negative Negative [facility] ([place]) Blood, ur 3+(A) Negative [facility] ([place]) Urobilinogen, ur 2.0(A) <2.0 mg/dL [facility] ([place]) Nitrite, ur Positive(A) Negative [facility] ([place]) Leukocyte esterase, ur 4+(A) Negative [facility] ([place]) UA reflex comment Reflex to microscopic UA will be performed. [facility] ([place]) Urine 08/13/2025 10:0 6 AM CDT 08/13/2025 10:25 AM CDT us Deepak BUCK LAB URINE ORDERABLES Fi nal Result [facility] ([place]) 1 [facility] Department of Laboratories [place], [place] [id number] * (ABNORMAL) Urinalysis, microscopic only (08/13/2025 10:06 AM CDT) WBC, ur >50(A) 0 - 5 /HPF RBC, ur >50(A) 0 - 2 /HPF C[facility]ER [facility] (ADONIS) Epithelial cells, squamous, ur 6-10(A) 0 - 5 /HPF [facility] (ADONIS) Bacteria, ur 3+(A) [facility] (ADONIS) Mucous, ur Present(A) [facility] A (ADONIS) Urine 08/13/2025 10:0 6 AM CDT 08/13/2025 10:25 AM CDT Deepak BUCK LAB URINE ORDERABLES Fi nal Result [facility] ([place]ON[place]) 1 [facility] Department [place] [address] * (ABNORMAL) Urine culture Urine, bladder (08/13/2025 10:06 AM CDT) Report Final Report: Greater than or equal to 100,000 colonies/mL of Escherichia coli Greater than or equal to 100,000 colonies/mL of Escherichia coli #2 (.) Comment:Testing performed by : [facility], [address] [place] [address] Organism ESCHERICHIA COLI [facility] ([place]ONIS) Organism ESCHERICHIA COLI [facility] (ADONIS) Urine, bladder 08/13/2025 10 :06 AM CDT 08/13/2025 1:07 PM CDT Narrative [facility] (ADONIS) - 08/16/2025 6:33 AM CDT Testing performed by [facility] Laboratory ([phone]) Organism Antibiotic Method Susceptibility Escherichia coli Ampicillin INTERPRETATION Resistant Escherichia coli Cefazolin INTERPRETATION Susceptible Escherichia coli Nitrofurantoin INTERPRETATION Susceptible Escherichia coli Gentamicin INTERPRETATION Susceptible Escherichia coli Trimethoprim with Sulfamethoxazole IN TERPRETATION Susceptible Escherichia coli Meropenem INTERPRETATION Susceptible Escherichia coli Cefepime INTERPRETATION Susceptible Escherichia coli Ciprofloxacin INTERPRETATION Susceptible Escherichia coli Ceftazidime INTERPRETATION Susceptible Escherichia coli Ceftriaxone INTERPRETATION Susceptible Escherichia coli Piperacillin/Tazobactam INTERPRETATIO N Susceptible Escherichia coli Cephalexin INTERPRETATION Susceptible Escherichia coli Cefuroxime-axetil INTERPRETATION Susceptible Escherichia coli Cefdinir INTERPRETATION Susceptible Escherichia coli Ampicillin INTERPRETATION Resistant Escherichia coli Cefazolin INTERPRETATION Susceptible Escherichia coli Nitrofurantoin INTERPRETATION Resistant Escherichia coli Gentamicin INTERPRETATION Susceptible Escherichia coli Trimethoprim with Sulfamethoxazole IN TERPRETATION Susceptible Escherichia coli Meropenem INTERPRETATION Susceptible Escherichia coli Cefepime INTERPRETATION Susceptible Escherichia coli Ciprofloxacin INTERPRETATION Susceptible Escherichia coli Ceftazidime INTERPRETATION Susceptible Escherichia coli Ceftriaxone INTERPRETATION Susceptible Escherichia coli Piperacillin/Tazobactam INTERPRETATIO N Susceptible Escherichia coli Cephalexin INTERPRETATION Susceptible Escherichia coli Cefuroxime-axetil INTERPRETATION Susceptible Escherichia coli Cefdinir INTERPRETATION Susceptible us Deepak BUCK LAB MICROBIOLOGY - GENE RAL ORDERABLES Final Result LEVON CHENG (CAMERON) 1 [facility] [place] [address] * Diagnostic Mammogram Bilateral W Son (04/04/2025 10:24 AM CDT) Anatomical Region Laterality Modality Breast Bilateral Mammography 04/04/2025 4:30 PM CDT Impressions 04/04/2025 4:30 PM CDT No change in the tiny mass in question in the left breast. Continued follow-up is recommended with a left breast ultrasound in 6 months. OVERALL FINAL ASSESSMENT: BI-RADS 3 - Probably benign findings. Short-term follow-up is recommended. Electronically signed by: Neeru Quinones M.D. Narrative 04/04/2025 4:30 PM CDT EXAMINATION: BILATERAL DIGITAL DIAGNOSTIC MAMMOGRAM AND DIGITAL BREAST TOMOSYNTHESIS; LEFT BREAST SONOGRAM HISTORY: Follow-up COMPARISON: Studies dating back to 12/13/2023 TECHNIQUE: Full field digital mammographic views of the bilateral breast(s) were performed, including computer aided detection (CAD) and digital breast tomosynthesis (DBT). Directed ultrasound evaluation of the left breast(s) was performed. BREAST PARENCHYMAL COMPOSITION: The breasts are almost entirely fatty. MAMMOGRAM FINDINGS: The tiny mass in the anteromedial left breast is unchanged. There are no new masses. No suspicious calcifications are seen. There is no unexplained architectural distortion. There is no skin thickening seen. There are no mammographically abnormal lymph nodes seen in the axillae or elsewhere. ULTRASOUND FINDINGS: Sonography through the 11 o'clock position again demonstrates the tiny hypoechoic mass, thought to account for the mammographic structure. It has not changed. However, it does have an antiparallel configuration. The maximum measurement is 3 mm. us Deepak BUCK IMG MAMMO PROCEDURES Fi nal Result * Dexa Axial Skeleton Bone Density 1 or 2 Site (12/13/2023 8:58 AM REGULATORY AFFAIRS PORTFOLIO LEADER) Anatomical Region Laterality Modality Body N/A Other 12/13/2023 5:23 PM REGULATORY AFFAIRS PORTFOLIO LEADER Narrative 12/13/2023 5:25 PM REGULATORY AFFAIRS PORTFOLIO LEADER EXAM DESCRIPTION: DEXA AXIAL SKELETON BONE DENSITY 1 OR MORE SITES REASON FOR STUDY: 73 y/o year old F with given history of: screening Osteoporosis screening Post menopausal Hyperparathyroidism Office Correspondent/Model: Paice (S/N [id number]) CLINICAL INFORMATION: Current height: 58 inches Maximum height: 62 inches Weight: 205 pounds Risk factors: Postmenopausal, smoking history, steroid use, asthma or emphysema, hyperparathyroidism COMPARISON: 05/22/2012 Dissimilar scan types or analysis methods precludes assessment for calculating a significant change. FINDINGS: AP LUMBAR SPINE L1-L4: Total BMD is 1.148 g/cm2 T-score is 0.9 LEFT HIP: Total BMD is 0.711 g/cm2 T-score is -1.9 Femoral neck BMD is 0.494 g/cm2 T-score is -3.2 LEFT forearm: 33% radius BMD is 0.567 g/cm2 T-score is -2.1 FRAX: FRAX not reported due to T-scores of hip, femoral neck and/or spine being at or below -2.5 (Osteoporosis). IMPRESSION: Osteoporosis. REFERENCE: Bone mineral density: Normal (T-score above or = -1.0) Low bone mass (T-score between -1.0 and -2.5) replaces the previously used term osteopenia Osteoporosis (T-score = or below -2.5) Please see below follow up recommendations. Medical evaluation for secondary causes of low bone mineral density may be appropriate. FRAX is a World Health Organization validated fracture risk assessment tool that calculates a person's 10 year probability of a major osteoporosis related fracture and hip fracture. According to the National Osteoporosis Foundation guidelines, postmenopausal women and men age 50 or older with low bone mass and a 10 year probability of a major osteoporosis related fracture = or greater than 20% or a 10 year probability of a hip fracture = or greater than 3% should be considered for pharmacological treatment for the prevention of osteoporosis. For further information, including treatment recommendations, please refer to the 2019 ISCD Official Positions (http://www.iscd.org) and the NOF's Clinician's Guide to Prevention and Treatment of Osteoporosis (http://www.nof.org/professionals/clinical-guidelines) THIS IS AN ELECTRONICALLY VERIFIED FINAL REPORT 12/13/2023 5:25 PM - Electronically signed by Martín Vargas M.D. MF: MOE Report ID: [id number] Reading Location: [place] [address] Procedure Note Martín Vargas MD - 12/13/2023 EXAM DESCRIPTION: DEXA AXIAL SKELETON BONE DENSITY 1 OR MORE SITES REASON FOR STUDY: 73 y/o year old F with given history of: screening Osteoporosis screening Post menopausal Hyperparathyroidism Office Correspondent/Model: [employer] (S/N [id number]) CLINICAL INFORMATION: Current height: 58 inches Maximum height: 62 inches Weight: 205 pounds Risk factors: Postmenopausal, smoking history, steroid use, asthma or emphysema, hyperparathyroidism COMPARISON: 05/22/2012 Dissimilar scan types or analysis methods precludes assessment for calculating a significant change. FINDINGS: AP LUMBAR SPINE L1-L4: Total BMD is 1.148 g/cm2 T-score is 0.9 LEFT HIP: Total BMD is 0.711 g/cm2 T-score is -1.9 Femoral neck BMD is 0.494 g/cm2 T-score is -3.2 LEFT forearm: 33% radius BMD is 0.567 g/cm2 T-score is -2.1 FRAX: FRAX not reported due to T-scores of hip, femoral neck and/or spine beingat or below -2.5 (Osteoporosis). IMPRESSION: Osteoporosis. REFERENCE: Bone mineral density: Normal (T-score above or = -1.0) Low bone mass (T-score between -1.0 and -2.5) replaces thepreviously used term osteopenia Osteoporosis (T-score = or below -2.5) Please see below follow up recommendations. Medical evaluation forsecondary causes of low bone mineral density may be appropriate. FRAX is a World Health Organization validated fracture risk assessmenttool that calculates a person's 10 year probability of a major osteoporosisrelated fracture and hip fracture. According to the National OsteoporosisFoundation guidelines, postmenopausal women and men age 50 or older with low bonemass and a 10 year probability of a major osteoporosis related fracture = or greater than 20% or a 10 year probability of a hip fracture = or greaterthan 3% should be considered for pharmacological treatment for the preventionof osteoporosis. For further information, including treatment recommendations, please referto the 2019 ISCD Official Positions (http://www.iscd.org) and the NOF's Clinician's Guide to Prevention and Treatment of Osteoporosis (http://www.nof.org/professionals/clinical-guidelines) THIS IS AN ELECTRONICALLY VERIFIED FINAL REPORT 12/13/2023 5:25 PM - Electronically signed by Martín Vargas M.D. MF: MOE Report ID: [id number] Reading Location: [place] [address] Deepak BUCK [facility] DXA PROCEDURES Nhung l Result * COLONOSCOPY (08/27/2021 2:05 PM CDT) Anatomical Region Laterality Modality Other Narrative Procedure Note Jessica Gallagher MD - 08/27/2021 2:05 PM CDT [facility] Patient Name: Victor Manuel Lemus Procedure Date: 08/27/2021 2:05 PM Date of : 1950 Admit Type: Outpatient Age: 71 Gender: Female Note Status: Finalized Attending MD: Jessica Gallagher M.D. Procedure Date: 08/27/2021 Procedure: Colonoscopy Indications: Chronic diarrhea Providers: Jessica Gallagher M.D., Elsa Sutherland CRNA (Anesthesia Staff), Alma Rosa Whaley, RN,Latosha Bates, Cushion Maker Hand Referring MD: Kendrick Rich M.D. Medicines: Monitored Anesthesia Care Complications: No immediate complications. Estimated Blood Loss: Estimated blood loss was minimal. Procedure: Pre-Anesthesia Assessment: - Prior to the procedure, a History and Physicalwas performed, and patient medications and allergieswere reviewed. The patient is competent. The risks and benefits of the procedure and the sedation optionsand risks were discussed with the patient. Allquestions were answered and informed consent was obtained. Patient identification and proposed procedure were verified by the physician, the nurse and the reaming machine operator for plastic in the procedure room. Mental Status Examination: alert and oriented. AirwayExamination: normal oropharyngeal airway and neck mobility. Respiratory Examination: clear to auscultation. CV Examination: normal. Prophylactic Antibiotics: The patient does not require prophylactic antibiotics. Prior Anticoagulants: The patient has taken no previous anticoagulant or antiplatelet agents. ASA Grade Assessment: III - A patient with severesystemic disease. After reviewing the risks and benefits,the patient was deemed in satisfactory condition to undergo the procedure. The anesthesia plan was touse monitored anesthesia care (MAC). Immediately priorto administration of medications, the patient was re-assessed for adequacy to receive sedatives. The heart rate, respiratory rate, oxygen saturations, blood pressure, adequacy of pulmonary ventilation,and response to care were monitored throughout the procedure. The physical status of the patient was re-assessed after the procedure. - The risks and benefits of the procedure and the sedation options and risks were discussed with the patient. All questions were answered and informed consent was obtained. After I obtained informed consent, the scope was passed under direct vision. Throughout theprocedure, the patient's blood pressure, pulse, and oxygen saturations were monitored continuously. The scopewas passed under direct vision. The Colonoscope was introduced through the anus and advanced to the the terminal ileum. The colonoscopy was performedwithout difficulty. The patient tolerated the procedurewell. The quality of the bowel preparation was adequate.The bowel preparation used was SUPREP via split dose instruction. Bowel prep was administered using asplit dose. Findings: The terminal ileum appeared normal. Biopsies were taken with a cold forceps for histology. Estimated blood loss was minimal. Multiple small and large-mouthed diverticula were found in thesigmoid colon and descending colon. Normal mucosa was found in the entire colon. Biopsies for histologywere taken with a cold forceps from the ascending colon for evaluation of microscopic colitis. Estimated blood loss was minimal. A 2 mm polyp was found in the sigmoid colon. The polyp was sessile.The polyp was removed with a jumbo cold forceps. Resection and retrieval were complete. Estimated blood loss was minimal. The exam was otherwise without abnormality on direct and retroflexion views. Impression: - The examined portion of the ileum was normal. Biopsied. - Diverticulosis in the sigmoid colon and in the descending colon. - Normal mucosa in the entire examined colon.Biopsied. - One 2 mm polyp in the sigmoid colon, removed witha jumbo cold forceps. Resected and retrieved. - The examination was otherwise normal on directand retroflexion views. Recommendation: - Await pathology results. - Return to my office in 2 weeks. - Repeat colonoscopy in 5 years for surveillancebased on pathology results. Procedure Code(s): --- Professional --- 40338, Colonoscopy, flexible; with biopsy, singleor multiple Diagnosis Code(s): --- Professional --- K63.5, Polyp of colon K52.9, Noninfective gastroenteritis and colitis, unspecified K57.30, Diverticulosis of large intestine without perforation or abscess without bleeding CPT copyright 2019 [employer]. All rights reserved. The codes documented in this report are preliminary and upon handkerchief sample clerk reviewmay be revised to meet current compliance requirements. Electronically signed by Jessica Gallagher M.D. Jessica Gallagher M.D. 08/27/2021 2:43:27 PM Number of Addenda: 0 Note Initiated On: 08/27/2021 2:05 PM Jessica Gallagher MD ENDOSCOPY PROCEDURES Fi nal Result * HEPATITIS C SCREENING (01/25/2017) HEP C Normal Comment:NEGATIVE Historical Provider HEALTH MAINTENANCE Final Result from Last 3 Months or Most Recently Relevant to Health Maintenance Additional Health Concerns Active Problems Noted Date Diagnosed Date Autogenerated Problem 10/15/2025 Insurance [facility] Member Subscriber Plan / Payer (Ef fective 2017-Present) Name:VICTOR MANUEL LEMUS Relation to Subscriber:Self Name:Victor Manuel Lemus Payer ID:[id number] (NAIC) Type:MEDICARE RISK OTHER Address: [address] [facility] Advance Directives For more information, please contact: [phone] * Full Code (Latest Code Status on File) Date Activated Date Inactivated Comments 12/06/2019 6:29 PM 12/09/2019 9:44 PM Care Teams Second Mate Relationship Specialty Start Date End Date Deepak Clarke PA [address] [facility] [facility] [address] [place] [address] PCP - General Internal Medicine 06/16/22 Georgette Cason DO [address] [facility] [address] [place] [address] Consulting Physician Endocrinology Diabetes & Metabolism 03/15/25 [place] [address] [place] [address] Consulting Physician Urology 09/12/25 Amandeep Fermin MD 2 [facility] [address] [place] [address] Consulting Physician Urology 10/24/25 [facility] 08/09/24
--- OUTSIDE RECORDS SUMMARY | 2025-10-25 12:42 | XMS_ITS | Encounter Summary ---
Author Organization [facility] Address [address] [place] [address] Phone Care Team Providers Care Casting Molder Name Role Phone Kendrick Rich MD Primary Care Provi johan Deepak Clarke Primary Care Provider Georgette Cason DO Unavailable [phone] Aaron Mckay MD Unavailable [phone] Amandeep Fermin MD Unavailable [phone] Encounter Details Date Type Department Care Team (Late st Contact Info) Description 12/27/2017 Orders Only [facility] ProviderKerry MD [address] [place] [address] Social History Tobacco Use Types Packs/Day Years Used Date Smoking Tobacco: Never Smokeless Tobacco: Never Alcohol Use Standard Drinks/Week Comments No 0 (1 standard drink = 0.6 oz pur e alcohol) Comments Unknown Sex and Gender Information Value Date Recorded Sex Assigned at Not on file Legal Sex Female 11:52 PM CASH ROOM CLERK Gender Identity Not on file Sexual Orientation Not on file documented as of this encounter Plan of Treatment Upcoming Encounters Date Type Department Care Team (Late st Contact Info) Description 12/03/2025 7:30 AM CASH ROOM CLERK Hospital Encounter 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 Operating Room [address] [place] [address] Jena Graham NP [address] [facility] [id number] [place] [address] 12/03/2025 7:30 AM CASH ROOM CLERK - 12/03/2025 12:10 PM CASH ROOM CLERK Surgery [facility] Operating Room [address] [place] [address] [place] [address] [address] [facility] [address], [place] [address] ENDOVASCULAR REPAIR - AORTIC documented as of this encounter Procedures Procedure Name Priority Date/Time Associated Diagnosis Comments DISCHARGE LABORATORY CUMULATIVE REPORT 12/27/2017 12:00 AM CASH ROOM CLERK documented in this encounter Results * DISCHARGE LABORATORY CUMULATIVE REPORT (12/27/2017 12:00 AM CASH ROOM CLERK) Narrative 12/27/2017 12:00 AM CASH ROOM CLERK Ordered by an unspecified provider. us Historical Provider LAB BLOOD ORDERABLES Nhung l Result documented in this encounter Visit Diagnoses Not on filedocumented in this encounter Care Teams Casting Molder Relationship Specialty Start Date End Date Kendrick Rich MD PCP - General 02/04/17 06/15/22 Deepak Clarke PA [address] [facility] [address] [place] [address] PCP - General Internal Medicine 06/16/22 Georgette Cason DO [address] [facility] [address] [place] [address] Consulting Physician Endocrinology Diabetes & Metabolism 03/15/25 [place] [address] [place] [address] Consulting Physician Urology 09/12/25 Amandeep Fermin MD [address] [facility] [address] [place] [address] Consulting Physician Urology 10/24/25 [facility] [employer] [facility] 08/09/24 documented as of this encounter
--- OUTSIDE RECORDS SUMMARY | 2025-10-25 12:43 | XMS_ITS | Encounter Summary ---
Author Organization [facility] Address [address] [place] [address] Phone Care Team Providers Care Thermoforming Operator Name Role Phone Kendrick Rich MD Primary Care Provi johan Deepak Clarke Primary Care Provider Georgette Cason DO Unavailable [phone] Aaron Mckay MD Unavailable [phone] Amandeep Fermin MD Unavailable [phone] Encounter Details Date Type Department Care Team (Late st Contact Info) Description 03/15/[address] [facility] ProviderKerry MD [address] [place] [address] Social History Tobacco Use Types Packs/Day Years Used Date Smoking Tobacco: Never Smokeless Tobacco: Never Alcohol Use Standard Drinks/Week Comments No 0 (1 standard drink = 0.6 oz pur e alcohol) Comments Unknown Sex and Gender Information Value Date Recorded Sex Assigned at Not on file Legal Sex Female 11:52 PM VP MARKETING [employer] Gender Identity Not on file Sexual Orientation Not on file documented as of this encounter Plan of Treatment Upcoming Encounters Date Type Department Care Team (Late st Contact Info) Description 12/03/2025 7:30 AM VP MARKETING SERVICES AND SKIN Hospital Encounter [facility] Operating Room [address] [place] [address] [place] [address] [address] [facility] [address] [place] [address] Infrarenal abdominal aortic aneurysm (AAA) without rupture 12/03/2025 7:30 AM VP [employer]IN Anesthesia Event [facility] Operating Room [address] [place] [address] Jena Graham NP [address] [facility] [phone] [place] [address] 12/03/2025 7:30 AM [employer] - 12/03/2025 12:10 PM VP [employer] Surgery [facility] Operating Room [address] [place] [address] [place] [address] [address] [facility] [address], [place] [address] ENDOVASCULAR REPAIR - AORTIC documented as of this encounter Procedures Procedure Name Priority Date/Time Associated Diagnosis Comments DISCHARGE LABORATORY CUMULATIVE REPORT 03/15/2018 12:00 AM CDT documented in this encounter Results * DISCHARGE LABORATORY CUMULATIVE REPORT (03/15/2018 12:00 AM CDT) Narrative 03/15/2018 12:00 AM CDT Ordered by an unspecified provider. us Historical Provider LAB BLOOD ORDERABLES Nhung l Result documented in this encounter Visit Diagnoses Not on filedocumented in this encounter Care Teams Thermoforming Operator Relationship Specialty Start Date End Date Kendrick Rich MD PCP - General 02/04/17 06/15/22 Deepak Clarke PA [address] [facility] [address] [place] [address] PCP - General Internal Medicine 06/16/22 Georgette Cason DO [address] [facility] [address] [place] [address] Consulting Physician Endocrinology Diabetes & Metabolism 03/15/25 [place] [address] [place] [address] Consulting Physician Urology 09/12/25 Amandeep Fermin MD [address] [facility] [address] [place] [address] Consulting Physician Urology 10/24/25 [facility] 08/09/24 documented as of this encounter
--- OUTSIDE RECORDS SUMMARY | 2025-10-25 12:43 | XMS_ITS | Clinical Summary ---
Author Organization [facility] Address [address] [place] [address] Care Team Providers Care Commercial Engineer Name Role Phone Unavailable Primary Care Provider Unavailabl e Source Comments [facility],non-owned Affiliates and Associated Physician Practices is amultiple site organization consisting of ambulatory clinics and hospital sitesin [place], [place], [place] and [place]. This disclosure is being madepursuant to the Care Everywhere program and may not contain all information available regarding this patient. Last updated 18.[facility] Encounters Date Type Department Care Team Description 08/16/2025 Travel from Last 3 Months Social History Tobacco Use Types Packs/Day Years Used Date Smoking Tobacco: Never Assessed Comments Unknown Sex and Gender Information Value Date Recorded Sex Assigned at Not on file Legal Sex Female 4:25 PM CDT Gender Identity Not on file Sexual Orientation Not on file Plan of Treatment Upcoming Encounters Date Type Department Care Team (Late st Contact Info) Description 11/26/2025 1:00 PM WIND SCIENCE AND PLANNING Office Visit [facility] - SOLAR TECH [address], [facility] [address] [place] [address] Yessica Ruiz MD [address] [facility] [address] [place] [address] Health Maintenance Due Date Last Done Comments BONE DENSITY TESTING 1950 COLOGUARD (AGES 45-75) - COLON CA SCREENING 1950 COLON MONITORING 1950 COLONOSCOPY - COLON CA SCREENING 1950 CT COLONOGRAPHY - COLON CA SCREENING 1950 Colorectal Cancer Screening 1950 FIT - COLON CA SCREENING 1950 FLEX SIG - COLON CA SCREENING 1950 LIPID TESTING 1950 MAMMOGRAM 1950 MEDICARE AWV 12 MONTHS 1950 HEPATITIS C SCREENING 02/12/1970 DTAP/TDAP/TD VACCINES (1 - Tdap) 02/16/1971 PNEUMOCOCCAL VACCINE 50+ (1 of 1 - PCV) 02/16/2002 ZOSTER VACCINE (1 of 2) 02/16/2002 DEPRESSION SCREENING 11/07/2024 COVID-19 VACCINE ( - 2024- season) 2025 07/17/2023, 10/08/2021, 01/22/2021, Additional history exists INFLUENZA VACCINE (#1) 2025 , 09/09/2023, 08/05/2022, Additional history exists Respiratory Syncytial Virus (RSV) Vaccine Pt: or over 60 yrs (1 - 1-dose 75+ series) 02/16/2027 HEPATITIS B VACCINE Aged Out No longe r eligible based on patient's age to complete this topic HIB VACCINE Aged Out No longer eligi ble based on patient's age to complete this topic HPV VACCINE Aged Out No longer eligi ble based on patient's age to complete this topic MENINGOCOCCAL (Group B) VACCINE SHARED DECISION-MAKING Aged Out No longer eligible based on patient's age to complete this topic MENINGOCOCCAL GROUPS A/C/Y/W VACCINE Aged Out No longer eligible based on patient's age to complete this topic Insurance MEDICARE
--- OUTSIDE RECORDS SUMMARY | 2025-10-25 12:43 | XMS_ITS | Encounter Summary ---
Author Organization [facility] Address [address] [place] [address] Care Team Providers Care Invoice Classification Clerk Name Role Phone Kendrick Rich MD Primary Care Provi johan Kendrick Rich MD Primary Care Provi johan Kendrick Rich MD Primary Care Provi johan Deepak Clarke Primary Care Provider Georgette Cason DO Unavailable [phone] Aaron Mckay MD Unavailable [phone] Amandeep Fermin MD Unavailable [phone] Encounter Details Date Type Department Care Team (Late st Contact Info) Description 05/22/2012 Orders Only [facility] [address] [facility] [address] [place] [address] Kendrick Rich MD [address] [place] [address] Social History Tobacco Use Types Packs/Day Years Used Date Smoking Tobacco: Never Alcohol Use Standard Drinks/Week Comments No 0 (1 standard drink = 0.6 oz pur e alcohol) Comments Unknown Sex and Gender Information Value Date Recorded Sex Assigned at Not on file Legal Sex Female 11:52 PM [employer]AL [employer] Gender Identity Not on file Sexual Orientation Not on file documented as of this encounter Plan of Treatment Upcoming Encounters Date Type Department Care Team (Late st Contact Info) Description 12/03/2025 7:30 AM [employer] Hospital Encounter [facility] Operating Room [address] [place] [address] [place] [address] [address] [facility] [address] [place] [address] Infrarenal abdominal aortic aneurysm (AAA) without rupture 12/03/2025 7:30 AM PROF[employer]AL [employer] Anesthesia Event [facility] Operating [address] [place] [address] Jena Graham, LUMBER SORTER [address] [facility] [phone] [place] [address] 12/03/2025 7:30 AM PROFESSIONAL [employer] - 12/03/2025 12:10 PM PROF[employer]AL [employer] Surgery [facility] Operating [address] [place] [address] [place] [address] [facility] [address], [place] [address] ENDOVASCULAR REPAIR - AORTIC documented as of this encounter Procedures Procedure Name Priority Date/Time Associated Diagnosis Comments SCAN - RADIOLOGY/IMAGING Routine 05/22/2012 documented in this encounter Results * SCAN - RADIOLOGY/IMAGING (05/22/2012) Anatomical Region Laterality Modality Other us Historical Provider Final Res ult documented in this encounter Visit Diagnoses Not on filedocumented in this encounter Care Teams Invoice Classification Clerk Relationship Specialty Start Date End Date Kendrick Rich MD PCP - General 02/04/17 06/15/22 Kendrick Rich MD PCP - General 01/25/17 02/03/17 Kendrick Rich MD PCP - General 11/27/07 01/24/17 Deepak Clarke PA [address] [facility] [address] [place], [place] [address] [address] PCP - General Internal Medicine 06/16/22 Georgette Cason DO [address] [address] Consulting Physician Endocrinology Diabetes & Metabolism 03/15/25 [place] [address] [place] [address] Consulting Physician Urology 09/12/25 Amandeep Fermin MD [address] [facility] [address] [place] [address] Consulting Physician Urology 10/24/25 [facility] 08/09/24 documented as of this encounter
== END 2025-10-25 12:35 | disposition home or self-care (01) ==
PROVIDERS: PCP Physician Assistant; Visit Provider Urology
DX: N26.1 Atrophy of kidney (terminal) (principal)
CPT/HCPCS: 78708; A9562; J1938